=== PATIENT | male | born 1955 | race American Indian/Alaskan Native ===

== ENCOUNTER 2020-05-06 15:09 | Emergency (ER) | payer OTHER ==
[2020-05-06] MEDS ORDERED: Aspirin 81 MG Tab.Chew PO ONE (15:19)
--- NOTE | 2020-05-06 15:19 | EDM.PDOC ---
ED HPI GENERAL MEDICAL PROBLEM - General Stated Complaint: CHEST PAIN Time Seen by Provider: 05/06/20 15:17 Source of Information: Reports: Patient History Limitations: Reports: No Limitations - History of Present Illness INITIAL COMMENTS - FREE TEXT/NARRATIVE: This 64 yo male patient was sent to the ED from the [facility] due to a 3 day history of chest pain and shortness of breath. The patient reports he is having substernal chest pain over the past 3 days. The patient has attempted to take pepto and antacid medications with no symptom improvement. The patient reports he does have a history of acid reflux, but his symptoms have not lasted this long in the past. Duration: Day(s):, Constant Location: Reports: Chest Quality: Reports: Ache Severity: Moderate Improves with: Reports: None Worsens with: Reports: None Context: Reports: Other Associated Symptoms: Reports: No Other Symptoms Epigastric Pain Score (Numeric/FACES): 3 - Related Data Allergies Allergy/AdvReac Type Severity Reaction Status Date / Time Sulfa (Sulfonamide Allergy Unknown UNKNOWN Verified 05/06/20 15:21 Antibiotics) Home Meds: Home Meds Lisinopril/Hydrochlorothiazide [Zestoretic 10-12.5 MG] 1 tab PO DAILY 02/02/15 [History] Sertraline [Zoloft] 50 mg PO DAILY 12/18/15 [History] oxyCODONE HCl/Acetaminophen [oxyCODONE-Acetaminophen 5-325] 1 - 2 tab PO Q4H PRN 12/20/15 [History] Past Medical History - Past Health History Medical/Surgical History: Denies Medical/Surgical History Cardiovascular History: Reports: Hypertension Gastrointestinal History: Reports: GERD Musculoskeletal History: Reports: Other (See Below) Other Musculoskeletal History: "bulging discs" - Infectious Disease History Infectious Disease History: Reports: Chicken Pox - Past Surgical History GI Surgical History: Reports: Cholecystectomy Other GI Surgeries/Procedures: has surgical scar lower abd but this was part of the back surgery Musculoskeletal Surgical History: Reports: Other (See Below) Social & Family History - Family History Family Medical History: Noncontributory - Caffeine Use Caffeine Use: Reports: Coffee - Living Situation & Occupation Living situation: Reports: , with Spouse, with Family ED ROS GENERAL - Review of Systems Review Of Systems: Comprehensive ROS is negative, except as noted in HPI. ED EXAM, GENERAL - Physical Exam Exam: See Below Exam Limited By: No Limitations General Appearance: Alert, WD/WN, Mild Distress Eye Exam: Bilateral Eye: EOMI, Normal Inspection, PERRL Ears: Normal External Exam, Normal Canal, Hearing Grossly Normal, Normal TMs Nose: Normal Inspection, Normal Mucosa, No Blood Throat/Mouth: Normal Inspection, Normal Lips, Normal Teeth, Normal Gums, Normal Oropharynx, Normal Voice, No Airway Compromise Head: Atraumatic, Normocephalic Neck: Normal Inspection, Supple, Non-Tender, Full Range of Motion Respiratory/Chest: No Respiratory Distress, Lungs Clear, Normal Breath Sounds, No Accessory Muscle Use, Chest Non-Tender Cardiovascular: Normal Peripheral Pulses, Regular Rate, Rhythm, No Edema, No Gallop, No JVD, No Murmur, No Rub GI/Abdominal: Normal Bowel Sounds (Male) Exam: Deferred Rectal (Males) Exam: Deferred Back Exam: Normal Inspection, Full Range of Motion, NT Extremities: Normal Inspection, Normal Range of Motion, Non-Tender, Normal Capillary Refill, No Pedal Edema Neurological: Alert, Oriented, CN II-XII Intact, Normal Cognition, Normal Gait, Normal Reflexes, No Motor/Sensory Deficits Psychiatric: Normal Affect, Normal Mood Skin Exam: Warm, Dry, Intact, Normal Color, No Rash Lymphatic: No Adenopathy Course - Vital Signs Last Recorded V/S: Last Vital Signs Temp 36.4 C 05/06/20 15:19 Pulse 72 05/06/20 15:19 Resp 12 05/06/20 15:19 BP 122/74 05/06/20 15:19 Pulse Ox 97 05/06/20 15:19 - Orders/Labs/Meds Orders: Active Orders 24 hr Category Date Time Status EKG Documentation Completion [RC] STAT Care 05/06/20 15:11 Active CULTURE BLOOD [BC] Stat Lab 05/06/20 15:27 Received Labs: Laboratory Tests 05/06/20 05/06/20 05/06/20 Range/Units 15:27 15:27 15:27 WBC 7.1 (5.0-10.0) 10^3/uL RBC 5.21 (4.6-6.2) 10^6/uL Hgb 15.0 D (14.0-18.0) g/dL Hct 44.5 (40.0-54.0) % MCV 85.4 D (80-100) fL MCH 28.8 (27.0-34.0) pg MCHC 33.7 (33.0-35.0) g/dL Plt Count 167 D (150-450) 10^3/uL Neut % (Auto) 56.1 (42.2-75.2) % Lymph % (Auto) 29.6 (20.5-50.1) % [place] % (Auto) 9.0 H (2-8) % Eos % (Auto) 5.2 H (1.0-3.0) % Baso % (Auto) 0.1 (0.0-1.0) % D-Dimer, Quantitative < 100 (0-400) ng/mL Sodium 141 (136-145) mmol/L Potassium 3.6 (3.5-5.1) mmol/L Chloride 104 (98-107) mmol/L Carbon Dioxide 28 (21-32) mmol/L Anion Gap 12.6 (7-13) mEq/L BUN 16 (7-18) mg/dL Creatinine 1.11 (0.70-1.30) mg/dL Est Cr Clr Drug Dosing 82.47 mL/min Estimated GFR (MDRD) > 60 BUN/Creatinine Ratio 14.4 (No establ ref range) Glucose 100 H (74-99) mg/dL Lactic Acid (0.4-2.0) mmol/L Calcium 8.6 (8.5-10.1) mg/dL Total Bilirubin 0.5 (0.2-1.0) mg/dL AST 38 H (15-37) U/L ALT 45 (16-63) U/L Alkaline Phosphatase 75 (46-116) U/L Troponin I < 0.017 (0.000-0.056) ng/mL Total Protein 6.9 (6.4-8.2) g/dL Albumin 3.7 (3.4-5.0) g/dL Globulin 3.2 Albumin/Globulin Ratio 1.2 07/23/20 Range/Units 15:27 WBC (5.0-10.0) 10^3/uL RBC (4.6-6.2) 10^6/uL Hgb (14.0-18.0) g/dL Hct (40.0-54.0) % MCV (80-100) fL MCH (27.0-34.0) pg MCHC (33.0-35.0) g/dL Plt Count (150-450) 10^3/uL Neut % (Auto) (42.2-75.2) % Lymph % (Auto) (20.5-50.1) % [place] % (Auto) (2-8) % Eos % (Auto) (1.0-3.0) % Baso % (Auto) (0.0-1.0) % D-Dimer, Quantitative (0-400) ng/mL Sodium (136-145) mmol/L Potassium (3.5-5.1) mmol/L Chloride (98-107) mmol/L Carbon Dioxide (21-32) mmol/L Anion Gap (7-13) mEq/L BUN (7-18) mg/dL Creatinine (0.70-1.30) mg/dL Est Cr Clr Drug Dosing mL/min Estimated GFR (MDRD) BUN/Creatinine Ratio (No establ ref range) Glucose (74-99) mg/dL Lactic Acid 1.1 (0.4-2.0) mmol/L Calcium (8.5-10.1) mg/dL Total Bilirubin (0.2-1.0) mg/dL AST (15-37) U/L ALT (16-63) U/L Alkaline Phosphatase (46-116) U/L Troponin I (0.000-0.056) ng/mL Total Protein (6.4-8.2) g/dL Albumin (3.4-5.0) g/dL Globulin Albumin/Globulin Ratio Meds: Medications Discontinued Medications Generic Name Dose Route Start Last Admin Trade Name Freq PRN Reason Stop Dose Admin Al Hydroxide/Mg Hydroxide 30 ml 05/06/20 16:17 05/06/20 16:30 Gi Cocktail PO 05/06/20 16:18 30 ml ONETIME ONE Administration Aspirin 324 mg 05/06/20 15:19 05/06/20 15:35 Aspirin PO 05/06/20 15:20 324 mg ONETIME ONE Administration Departure - Departure Time of Disposition: 16:51 Disposition: Home, Self-Care 01 Condition: Fair Clinical Impression: GERD (gastroesophageal reflux disease) Qualifiers: Esophagitis presence: with esophagitis Qualified Code(s): K21.0 - Gastro- esophageal reflux disease with esophagitis Instructions: Gastroesophageal Reflux Disease, Adult, [id number] Forms: ED Department Discharge Care Plan Goals: The patient was advised of the examination, lab and EKG results during the visit. The patient was given an oral dose of Pepcid and a GI Cocktail while in the ED. The patient was discharged with a script for Omeprazole (20 mg) #30 to take 1 by mouth daily 30 minutes prior to meal. If the patient has any additional symptoms or concerns, the patient should follow-up with his primary care facility or return to the emergency department. Sepsis Event Note (ED) - Focused Exam Vital Signs: Vital Signs Temp Pulse Resp BP Pulse Ox 05/06/20 15:19 36.4 C 72 12 122/74 97 - My Orders Last 24 Hours: My Active Orders 05/06/20 15:11 EKG Documentation Completion [RC] STAT 05/06/20 15:27 CULTURE BLOOD [BC] Stat - Assessment/Plan Last 24 Hours: My Active Orders 05/06/20 15:11 EKG Documentation Completion [RC] STAT 05/06/20 15:27 CULTURE BLOOD [BC] Stat
[2020-05-06 15:20] VITALS: BP 122/74; PULSE 72
--- NOTE | 2020-05-06 15:48 | CR ---
PROCEDURE INFORMATION: Exam: XR Chest, 1 View Exam date and time: 05/06/2020 3:35 PM Age: 64 years old Clinical indication: Other: Chest pain TECHNIQUE: Imaging protocol: XR of the chest Views: 1 view. COMPARISON: CR Chest 1V Frontal 10/01/2015 11:35 AM FINDINGS: Lungs: Unremarkable. No consolidation. Pleural space: Unremarkable. No pleural effusion. No pneumothorax. Heart/Mediastinum: Unremarkable. No cardiomegaly. Bones/joints: Unremarkable. IMPRESSION: No acute findings.
[2020-05-06 15:57] LABS: ANION GAP 12.6 mEq/L (7-13); CHLORIDE,CL 104 mmol/L (98-107); SODIUM,NA 141 mmol/L (136-145)
[2020-05-06] MEDS ORDERED: GI Cocktail Oral Solution 30 ML PO ONE (16:17)
== END 2020-05-06 17:00 | disposition home or self-care (01) ==
LOC: DL.ED 15:09
DX: K21.0 Gastro-esophageal reflux disease with esophagitis (principal); I10 Essential (primary) hypertension; Z88.2 Allergy status to sulfonamides; Z79.899 Other long term (current) drug therapy
CPT/HCPCS: 36415; 71045; 80053; 83605; 84484; 85025; 85379; 87040; 93005; 99283; 99285; A9270

== ENCOUNTER 2020-08-28 13:19 | Emergency (ER) | payer OTHER ==
[2020-08-28 14:04] VITALS: BP 119/73; PULSE 96
[2020-08-28 14:27] LABS: ANION GAP 12.3 mEq/L (7-13); CHLORIDE,CL 98 mmol/L (98-107); SODIUM,NA 133 mmol/L (136-145)
--- NOTE | 2020-08-28 14:34 | CR ---
PROCEDURE INFORMATION: Exam: XR Chest, 1 View Exam date and time: 08/28/2020 2:25 PM Age: 65 years old Clinical indication: Chest pain; Type not specified TECHNIQUE: Imaging protocol: XR of the chest Views: 1 view. COMPARISON: CR Chest 1V Frontal 05/06/2020 3:35 PM FINDINGS: Lungs: Atelectatic and/or early infiltrative changes noted within the lung bases. Pleural space: Unremarkable. No pleural effusion. No pneumothorax. Heart/Mediastinum: Unremarkable. No cardiomegaly. Bones/joints: The thoracic spine demonstrates mild degenerative changes at multiple levels. Right shoulder replacement. IMPRESSION: Atelectatic and/or early infiltrative changes noted within the lung bases.
--- NOTE | 2020-08-28 14:43 | EDM.PDOC ---
ED HPI GENERAL MEDICAL PROBLEM - General Chief Complaint: Chest Pain Stated Complaint: COVID + Time Seen by Provider: 08/28/20 13:30 Source of Information: Reports: Patient History Limitations: Reports: No Limitations - History of Present Illness INITIAL COMMENTS - FREE TEXT/NARRATIVE: Patient is here for chest pain and shortness of breath. He was diagnosed with COVID on 08/20 and has been recovering well at home until 3 days ago. His chest began to hurt and he became more short of breath. No fevers or chills. His body aches are better. The pain does not radiate, but stays midline chest. It is sharp in nature and throbs. Onset: Gradual Improves with: Reports: Rest Worsens with: Reports: Other (coughing), Movement Context: Reports: Other (recent COVID infection) Associated Symptoms: Reports: Headaches. Denies: Fever/Chills Middle Chest Pain Score (Numeric/FACES): 8 - Related Data Allergies Allergy/AdvReac Type Severity Reaction Status Date / Time Sulfa (Sulfonamide Allergy Unknown UNKNOWN Verified 08/28/20 13:59 Antibiotics) Home Meds: Home Meds Lisinopril/Hydrochlorothiazide [Zestoretic 10-12.5 MG] 1 tab PO DAILY 02/02/15 [History] Sertraline [Zoloft] 50 mg PO DAILY 12/18/15 [History] oxyCODONE HCl/Acetaminophen [oxyCODONE-Acetaminophen 5-325] 1 - 2 tab PO Q4H PRN 12/20/15 [History] Past Medical History - Past Health History Medical/Surgical History: Denies Medical/Surgical History HEENT History: Reports: Cataract, Hard of Hearing Other HEENT History: moisture in ear Cardiovascular History: Reports: Hypertension Respiratory History: Reports: None Gastrointestinal History: Reports: GERD Genitourinary History: Reports: Other (See Below) Other Genitourinary History: stream Musculoskeletal History: Reports: Other (See Below) Other Musculoskeletal History: "bulging discs" Neurological History: Reports: Headaches, Chronic Psychiatric History: Reports: Depression Endocrine/Metabolic History: Reports: None Hematologic History: Reports: None Immunologic History: Reports: None Oncologic (Cancer) History: Reports: None Dermatologic History: Reports: Other (See Below) Other Dermatologic History: rash to the body since the 1970s - Infectious Disease History Infectious Disease History: Reports: Chicken Pox - Past Surgical History HEENT Surgical History: Reports: Cataract Surgery GI Surgical History: Reports: Cholecystectomy Other GI Surgeries/Procedures: has surgical scar lower abd but this was part of the back surgery Musculoskeletal Surgical History: Reports: Other (See Below) Other Musculoskeletal Surgeries/Procedures:: 2 back surgeries Social & Family History - Family History Family Medical History: No Pertinent Family History - Caffeine Use Caffeine Use: Reports: Coffee - Recreational Drug Use Recreational Drug Use: No - Living Situation & Occupation Living situation: Reports: , with Spouse, with Family ED ROS GENERAL - Review of Systems Review Of Systems: Comprehensive ROS is negative, except as noted in HPI. ED EXAM, GENERAL - Physical Exam Exam: See Below Exam Limited By: No Limitations General Appearance: Alert, WD/WN, No Apparent Distress Eye Exam: Bilateral Eye: Normal Inspection Ears: Normal External Exam Head: Atraumatic, Normocephalic Neck: Normal Inspection, Supple, Non-Tender, Full Range of Motion Respiratory/Chest: No Respiratory Distress, Lungs Clear, Normal Breath Sounds, No Accessory Muscle Use, Chest Non-Tender Cardiovascular: Normal Peripheral Pulses, Regular Rate, Rhythm, No Edema, No Murmur, No Rub GI/Abdominal: Soft, Non-Tender, No Distention (Male) Exam: Deferred Rectal (Males) Exam: Deferred Back Exam: Normal Inspection, Full Range of Motion, NT Extremities: Normal Inspection, Normal Range of Motion, Non-Tender, Normal Capillary Refill, No Pedal Edema Neurological: Alert, Oriented, CN II-XII Intact, Normal Cognition, Normal Gait, Normal Reflexes, No Motor/Sensory Deficits Psychiatric: Normal Affect Skin Exam: Warm, Dry, Intact, Normal Color, No Rash Lymphatic: No Adenopathy Course - Vital Signs Last Recorded V/S: Last Vital Signs Temp 96.8 F L 08/28/20 14:00 Pulse 96 08/28/20 14:00 Resp 22 H 08/28/20 14:00 BP 119/73 08/28/20 14:00 Pulse Ox 95 08/28/20 14:00 - Orders/Labs/Meds Orders: Active Orders 24 hr Category Date Time Status EKG 12 Lead [EKG Documentation Completion] [RC] URGENT Care 08/28/20 14:09 Active Labs: Laboratory Tests 08/28/20 08/28/20 Range/Units 13:46 13:46 WBC 3.1 L (5.0-10.0) 10^3/uL RBC 5.21 (4.6-6.2) 10^6/uL Hgb 15.1 (14.0-18.0) g/dL Hct 43.4 (40.0-54.0) % MCV 83.3 (80-100) fL MCH 29.0 (27.0-34.0) pg MCHC 34.8 (33.0-35.0) g/dL Plt Count 119 L (150-450) 10^3/uL Neut % (Auto) 59.7 (42.2-75.2) % Lymph % (Auto) 28.8 (20.5-50.1) % [place] % (Auto) 11.5 H (2-8) % Eos % (Auto) 0.0 L (1.0-3.0) % Baso % (Auto) 0.0 (0.0-1.0) % Sodium 133 L (136-145) mmol/L Potassium 3.3 L (3.5-5.1) mmol/L Chloride 98 (98-107) mmol/L Carbon Dioxide 26 (21-32) mmol/L Anion Gap 12.3 (7-13) mEq/L BUN 13 (7-18) mg/dL Creatinine 1.11 (0.70-1.30) mg/dL Est Cr Clr Drug Dosing 81.41 mL/min Estimated GFR (MDRD) > 60 BUN/Creatinine Ratio 11.7 (No establ ref range) Glucose 117 H (74-99) mg/dL Calcium 8.4 L (8.5-10.1) mg/dL Total Bilirubin 0.9 (0.2-1.0) mg/dL AST 64 H (15-37) U/L ALT 57 (16-63) U/L Alkaline Phosphatase 76 (46-116) U/L Troponin I < 0.017 (0.000-0.056) ng/mL Total Protein 7.2 (6.4-8.2) g/dL Albumin 3.3 L (3.4-5.0) g/dL Globulin 3.9 Albumin/Globulin Ratio 0.85 Departure - Departure Time of Disposition: 15:00 Disposition: Home, Self-Care 01 Clinical Impression: COVID-19 Instructions: COVID-19: How to Protect Yourself and Others - CDC Forms: ED Department Discharge Additional Instructions: Dexamethasone 6 mg daily for 10 days Continue to quarantine until symptoms the 16th or your symptoms clear, which ever comes later Follow up with primary care provider in 5-7 days or return sooner if your symptoms worsen. Sepsis Event Note (ED) - Evaluation Sepsis Screening Result: No Definite Risk - Focused Exam Vital Signs: Vital Signs Temp Pulse Resp BP Pulse Ox 08/28/20 14:00 96.8 F L 96 22 H 119/73 95 - My Orders Last 24 Hours: My Active Orders 08/28/20 14:09 EKG 12 Lead [EKG Documentation Completion] [RC] URGENT - Assessment/Plan Last 24 Hours: My Active Orders 08/28/20 14:09 EKG 12 Lead [EKG Documentation Completion] [RC] URGENT
== END 2020-08-28 15:07 | disposition home or self-care (01) ==
LOC: DL.ED 13:19
DX: U07.1 COVID-19 (principal); I10 Essential (primary) hypertension; F32.9 Major depressive disorder, single episode, unspecified; Z88.2 Allergy status to sulfonamides; Z79.899 Other long term (current) drug therapy
CPT/HCPCS: 36415; 71045; 80053; 84484; 85025; 93005; 99283; 99285-25

== ENCOUNTER 2020-09-01 07:45 | Inpatient (IN) | payer OTHER ==
--- NOTE | 2020-09-01 07:48 | EDM.PDOC ---
ED HPI GENERAL MEDICAL PROBLEM - General Stated Complaint: CALL IN Time Seen by Provider: 09/01/20 08:00 Source of Information: Reports: Patient History Limitations: Reports: No Limitations - History of Present Illness INITIAL COMMENTS - FREE TEXT/NARRATIVE: This 65 yo male patient was brought to the ED by [facility] due to increased shortness of breath. The patient reports he was tested and diagnosed with COVID on 08/20/20 at the [facility]. The patient reports he was doing well under quarantine until 5 days ago when he started to have increased shortness of breath. The patient reports he was seen in the ED on 08/28/20 and started on Dexamethasone (6 mg) daily for 10 days. Since he started the steroids, the patient has noticed no improvement in his breathing. The patient reports he has not been able to eat due to loss of appetite, has not been able to sleep due to the shortness of breath and had diarrhea this morning. The patient reports he currently feels like the right side of his lungs are "not working". The patient reports he has been taking the Dexamethasone as well as taking the Tessalon Pearles with no symptom improvement. EMS reports upon arrival at the scene the patient was "working hard to breath" and his oxygen saturation was 86% on room air. EMS placed a nasal canula at 3 lpm which increased his oxygen saturation to 94-95%. The patient has a past medical history of HTN, but no other cardiopulmonary concerns. Onset Date: 08/27/20 Duration: Constant, Getting Worse Location: Reports: Chest Quality: Reports: Pressure Severity: Severe Improves with: Reports: None Worsens with: Reports: None Context: Reports: Other Associated Symptoms: Reports: Cough, Shortness of Breath, Weakness, Other (diarrhea) Generalized Pain Score (Numeric/FACES): 9 - Related Data Allergies Allergy/AdvReac Type Severity Reaction Status Date / Time Sulfa (Sulfonamide Allergy Unknown UNKNOWN Verified 09/01/20 08:03 Antibiotics) Home Meds: Home Meds Lisinopril/Hydrochlorothiazide [Zestoretic 10-12.5 MG] 1 tab PO DAILY 02/02/15 [History] Sertraline [Zoloft] 50 mg PO DAILY 12/18/15 [History] oxyCODONE HCl/Acetaminophen [oxyCODONE-Acetaminophen 5-325] 1 - 2 tab PO Q4H PRN 12/20/15 [History] Past Medical History - Past Health History Medical/Surgical History: Denies Medical/Surgical History HEENT History: Reports: Cataract, Hard of Hearing Other HEENT History: moisture in ear Cardiovascular History: Reports: Hypertension Respiratory History: Reports: None Gastrointestinal History: Reports: GERD Genitourinary History: Reports: Other (See Below) Other Genitourinary History: stream Musculoskeletal History: Reports: Other (See Below) Other Musculoskeletal History: "bulging discs" Neurological History: Reports: Headaches, Chronic Psychiatric History: Reports: Depression Endocrine/Metabolic History: Reports: None Hematologic History: Reports: None Immunologic History: Reports: None Oncologic (Cancer) History: Reports: None Dermatologic History: Reports: Other (See Below) Other Dermatologic History: rash to the body since the 1970s - Infectious Disease History Infectious Disease History: Reports: Chicken Pox - Past Surgical History HEENT Surgical History: Reports: Cataract Surgery GI Surgical History: Reports: Cholecystectomy Other GI Surgeries/Procedures: has surgical scar lower abd but this was part of the back surgery Musculoskeletal Surgical History: Reports: Other (See Below) Other Musculoskeletal Surgeries/Procedures:: 2 back surgeries Social & Family History - Family History Family Medical History: No Pertinent Family History - Caffeine Use Caffeine Use: Reports: Coffee - Living Situation & Occupation Living situation: Reports: , with Spouse, with Family ED ROS GENERAL - Review of Systems Review Of Systems: Comprehensive ROS is negative, except as noted in HPI. ED EXAM, GENERAL - Physical Exam Exam: See Below Exam Limited By: No Limitations General Appearance: Alert, WD/WN, Moderate Distress Eye Exam: Bilateral Eye: EOMI, Normal Inspection, PERRL Ears: Normal External Exam, Normal Canal, Hearing Grossly Normal, Normal TMs Nose: Normal Inspection, Normal Mucosa, No Blood Throat/Mouth: Normal Inspection, Normal Lips, Normal Teeth, Normal Gums, Normal Oropharynx, Normal Voice, No Airway Compromise Head: Atraumatic, Normocephalic Neck: Normal Inspection, Supple, Non-Tender, Full Range of Motion Respiratory/Chest: Decreased Breath Sounds, Rhonchi (right sided), Other (Respiratory rate 26 bpm with oxygen via NC at 3 lpm) Cardiovascular: Normal Peripheral Pulses, Regular Rate, Rhythm, No Edema, No Gallop, No JVD, No Murmur, No Rub GI/Abdominal: Normal Bowel Sounds, Soft, Non-Tender, No Organomegaly, No Distention, No Abnormal Bruit, No Mass (Male) Exam: Deferred Rectal (Males) Exam: Deferred Back Exam: Normal Inspection, Full Range of Motion, NT Extremities: Normal Inspection, Normal Range of Motion, Non-Tender, Normal Capillary Refill, No Pedal Edema Neurological: Alert, Oriented, CN II-XII Intact, Normal Cognition, Normal Gait, Normal Reflexes, No Motor/Sensory Deficits Psychiatric: Anxious, Tearful Skin Exam: Warm, Dry, Intact, Normal Color, No Rash Lymphatic: No Adenopathy Course - Vital Signs Last Recorded V/S: Last Vital Signs Temp 37.0 C 09/01/20 07:59 Pulse 92 09/01/20 07:59 Resp 24 H 09/01/20 07:59 BP 131/78 09/01/20 07:59 Pulse Ox 95 09/01/20 07:59 - Orders/Labs/Meds Orders: Active Orders 24 hr Category Date Time Status CULTURE BLOOD [BC] Stat Lab 09/01/20 08:02 Received Azithromycin [Zithromax] 500 mg Med 09/01/20 10:27 Ordered Sodium Chloride 0.9% [Normal Saline (AdvBag)] 250 ml IV ONETIME cefTRIAXone [Rocephin] 1 gm Med 09/01/20 10:27 Ordered Sodium Chloride 0.9% [Normal Saline] 50 ml IV ONETIME Medication Orders Azithromycin 500 mg/ Sodium (Chloride) 250 mls @ 250 mls/hr IV ONETIME ONE Stop: 09/01/20 11:26 Ceftriaxone Sodium 1 gm/ (Sodium Chloride) 50 mls @ 100 mls/hr IV ONETIME ONE Stop: 09/01/20 10:56 Labs: Laboratory Tests 09/01/20 09/01/20 09/01/20 Range/Units 08:02 08:02 08:02 WBC 10.2 H (5.0-10.0) 10^3/uL RBC 5.18 (4.6-6.2) 10^6/uL Hgb 14.8 (14.0-18.0) g/dL Hct 43.6 (40.0-54.0) % MCV 84.2 (80-100) fL MCH 28.6 (27.0-34.0) pg MCHC 33.9 (33.0-35.0) g/dL Plt Count 186 (150-450) 10^3/uL Neut % (Auto) 87.2 H (42.2-75.2) % Lymph % (Auto) 6.5 L (20.5-50.1) % [place] % (Auto) 6.2 (2-8) % Eos % (Auto) 0.0 L (1.0-3.0) % Baso % (Auto) 0.1 (0.0-1.0) % PT 11.3 (9.0-12.0) SEC INR 1.2 (0.9-1.2) D-Dimer, Quantitative 204 (0-400) ng/mL Sodium 139 (136-145) mmol/L Potassium 3.8 (3.5-5.1) mmol/L Chloride 102 (98-107) mmol/L Carbon Dioxide 28 (21-32) mmol/L Anion Gap 12.8 (7-13) mEq/L BUN 16 (7-18) mg/dL Creatinine 0.98 (0.70-1.30) mg/dL Est Cr Clr Drug Dosing 92.21 mL/min Estimated GFR (MDRD) > 60 BUN/Creatinine Ratio 16.3 (No establ ref range) Glucose 114 H (74-99) mg/dL Lactic Acid (0.4-2.0) mmol/L Calcium 8.3 L (8.5-10.1) mg/dL Total Bilirubin 1.1 H (0.2-1.0) mg/dL AST 33 (15-37) U/L ALT 45 (16-63) U/L Alkaline Phosphatase 68 (46-116) U/L C-Reactive Protein 5.3 H (0.0-0.9) mg/dL Total Protein 6.6 (6.4-8.2) g/dL Albumin 2.8 L (3.4-5.0) g/dL Globulin 3.8 Albumin/Globulin Ratio 0.74 18/20 Range/Units 08:02 WBC (5.0-10.0) 10^3/uL RBC (4.6-6.2) 10^6/uL Hgb (14.0-18.0) g/dL Hct (40.0-54.0) % MCV (80-100) fL MCH (27.0-34.0) pg MCHC (33.0-35.0) g/dL Plt Count (150-450) 10^3/uL Neut % (Auto) (42.2-75.2) % Lymph % (Auto) (20.5-50.1) % [place] % (Auto) (2-8) % Eos % (Auto) (1.0-3.0) % Baso % (Auto) (0.0-1.0) % PT (9.0-12.0) SEC INR (0.9-1.2) D-Dimer, Quantitative (0-400) ng/mL Sodium (136-145) mmol/L Potassium (3.5-5.1) mmol/L Chloride (98-107) mmol/L Carbon Dioxide (21-32) mmol/L Anion Gap (7-13) mEq/L BUN (7-18) mg/dL Creatinine (0.70-1.30) mg/dL Est Cr Clr Drug Dosing mL/min Estimated GFR (MDRD) BUN/Creatinine Ratio (No establ ref range) Glucose (74-99) mg/dL Lactic Acid 1.8 (0.4-2.0) mmol/L Calcium (8.5-10.1) mg/dL Total Bilirubin (0.2-1.0) mg/dL AST (15-37) U/L ALT (16-63) U/L Alkaline Phosphatase (46-116) U/L C-Reactive Protein (0.0-0.9) mg/dL Total Protein (6.4-8.2) g/dL Albumin (3.4-5.0) g/dL Globulin Albumin/Globulin Ratio Meds: Medications Generic Name Dose Route Start Last Admin Trade Name Freq PRN Reason Stop Dose Admin Azithromycin 500 mg/ Sodium 250 mls @ 250 mls/hr 09/01/20 10:27 Chloride IV 09/01/20 11:26 ONETIME ONE Ceftriaxone Sodium 1 gm/ 50 mls @ 100 mls/hr 09/01/20 10:27 Sodium Chloride IV 09/01/20 10:56 ONETIME ONE Discontinued Medications Generic Name Dose Route Start Last Admin Trade Name Freq PRN Reason Stop Dose Admin Dexamethasone 6 mg 09/01/20 08:33 09/01/20 08:51 Decadron IVPUSH 09/01/20 08:34 6 mg ONETIME ONE Administration Departure - Departure Time of Disposition: 10:33 Disposition: Admitted As Inpatient 68 Condition: Fair Clinical Impression: COVID-19 Pneumonia Qualifiers: Pneumonia type: due to unspecified organism Laterality: bilateral Lung location: lower lobe of lung Qualified Code(s): J18.9 - Pneumonia, unspecified organism - Discharge Information *PRESCRIPTION DRUG MONITORING PROGRAM REVIEWED*: Not Applicable *COPY OF PRESCRIPTION DRUG MONITORING REPORT IN PATIENT DANIELLE: Not Applicable Care Plan Goals: Discussed the patient's history, examination, lab and CT results with Dr. Black. Dr. Black accepted the patient for continued evaluation and further management as an inpatient at [facility]. Sepsis Event Note (ED) - Focused Exam Vital Signs: Vital Signs Temp Pulse Resp BP Pulse Ox 09/01/20 07:59 37.0 C 92 24 H 131/78 95 - My Orders Last 24 Hours: My Active Orders 09/01/20 08:02 CULTURE BLOOD [BC] Stat 09/01/20 10:27 Azithromycin [Zithromax] 500 mg Sodium Chloride 0.9% [Normal Saline (AdvBag)] 250 ml IV ONETIME cefTRIAXone [Rocephin] 1 gm Sodium Chloride 0.9% [Normal Saline] 50 ml IV ONETIME - Assessment/Plan Last 24 Hours: My Active Orders 09/01/20 08:02 CULTURE BLOOD [BC] Stat 09/01/20 10:27 Azithromycin [Zithromax] 500 mg Sodium Chloride 0.9% [Normal Saline (AdvBag)] 250 ml IV ONETIME cefTRIAXone [Rocephin] 1 gm Sodium Chloride 0.9% [Normal Saline] 50 ml IV ONETIME
[2020-09-01 08:32] LABS: ANION GAP 12.8 mEq/L (7-13); CHLORIDE,CL 102 mmol/L (98-107); SODIUM,NA 139 mmol/L (136-145)
[2020-09-01] MEDS ORDERED: Dexamethasone 4 MG/ML SDV IVPUSH ONE (08:33)
--- NOTE | 2020-09-01 10:21 | CT ---
PROCEDURE INFORMATION: Exam: CT Chest Without Contrast Exam date and time: 09/01/2020 9:05 AM Age: 65 years old Clinical indication: Shortness of breath; Additional info: Short of breath TECHNIQUE: Imaging protocol: Computed tomography of the chest without contrast. Radiation optimization: All CT scans at this facility use at least one of these dose optimization techniques: automated exposure control; mA and/or kV adjustment per patient size (includes targeted exams where dose is matched to clinical indication); or iterative reconstruction. COMPARISON: 1. CR Chest 1V Frontal 08/28/2020 2:25 PM 2. CR - Chest 1V Frontal 05/06/2020 3:35:13 PM FINDINGS: Lungs: There are relatively large areas of predominantly peripheral ground-glass opacity with associated multifocal minimal interlobular septal thickening. There are a few areas associated more dense consolidation peripherally. Findings have a lower lung predominance. There is also nodular atelectasis or scar in the right lower lobe, and minimal discoid atelectasis or scar at the left lung base. Pleural space: Unremarkable. No pneumothorax. No pleural effusion. Heart: Unremarkable. No cardiomegaly. No pericardial effusion. Aorta: There is atherosclerotic calcification in the thoracic aorta. Descending thoracic aorta is slightly tortuous. Lymph nodes: Unremarkable. No enlarged lymph nodes. Gallbladder and bile ducts: Gallbladder has been surgically removed. Bones/joints: No acute osseous abnormality. Multilevel degenerative disc disease in the thoracic spine. No concerning osseous lesion. Right shoulder prosthesis partially included. Soft tissues: Unremarkable. Other findings: Comparison CT chest from 01/07/2016 is unavailable on PACs. IMPRESSION: 1. Predominantly peripheral geographic ground-glass opacities, with minimal interlobular septal thickening in multiple locations, as well as a few associated areas of more dense consolidation. Lower lung predominance. Commonly reported imaging features of COVID-19 pneumonia are present. Other processes such as influenza pneumonia and organizing pneumonia, as can be seen with drug toxicity and connective tissue disease, can cause a similar imaging pattern. (Reference: Dragan) REFERENCES: Dragan Velasquez et al., [employer] of [place] Expert Consensus Statement on Reporting Chest CT Findings Related to COVID-19. Endorsed by the Society of [employer]iology, the [place] [employer], and [employer]NA. Published January 07, 2020.
[2020-09-01] MEDS ORDERED: Azithromycin 500 MG in Sodium Chloride 0.9% 250 ML IV ONE (10:27)
[2020-09-01] MEDS ORDERED: cefTRIAXone 1 GM in Sodium Chloride 0.9% 50 ML IV ONE (10:27)
[2020-09-01] MEDS ORDERED: Ondansetron 4 MG/2 ML SDV IVPUSH PRN (11:44)
--- NOTE | 2020-09-01 11:57 | PCM.HP ---
H&P History of Present Illness - General Date of Service: 09/01/20 Admit Problem/Dx: Admission Diagnosis/Problem Admission Diagnosis/Problem COVID-19 pneumonia Source of Information: Patient History Limitations: Reports: No Limitations - History of Present Illness Initial Comments - Free Text/Narative: Stewart is a 35-year-old male with past medical history significant for hyp ertension, COVID-19 infection diagnosed on 08/20/2020. Patient was brought to the ED via EMS for increasing shortness of breath. Per patient he was diagnosed of COVID-19 on the above date and has been recuperating at home. He continued to have increasing shortness of breath, cough, weakness and decreased appetite. He was recently seen in the ED on 08/28/2020 where he was started on dexamethasone 6 mg daily to complete 10 days course. He has taken 3 doses so far. He says he has not seen any improvement since he started taking the Decadron. He gets short of breath easily with minimal activity. He has loss of appetite with poor oral intake. He is growing increasingly weak. He reports f ever on and off, headache. He had one episode of diarrhea this morning. Per EMS patient was saturating at 86% on room air. He was placed on 2 L via nasal cannula with saturation improved to 94 to 95%. He denies leg swelling. No chest pain. In the ED he was tachypneic at 24. CT chest showed peripheral groundglass opacities. Patient was started on IV ceftriaxone and azithromycin. Admission requested for further management. Onset of Symptoms: Reports: Gradual Duration of Symptoms: Reports: Day(s): Location: Reports: Generalized Quality: Reports: Ache Improves with: Reports: None Worsens with: Reports: None Context: Reports: Activity/Exercise Associated Symptoms: Reports: Cough, Fever/Chills, Headaches, Nausea/Vomiting, Shortness of Breath, Weakness Generalized Pain Score (Numeric/FACES): 9 - Related Data Allergies/Adverse Reactions: Allergies Allergy/AdvReac Type Severity Reaction Status Date / Time Sulfa (Sulfonamide Allergy Unknown UNKNOWN Verified 09/01/20 08:03 Antibiotics) Home Medications: Home Meds Lisinopril/Hydrochlorothiazide [Zestoretic 10-12.5 MG] 1 tab PO DAILY 02/02/15 [History] Sertraline [Zoloft] 50 mg PO BEDTIME 12/18/15 [History] oxyCODONE HCl/Acetaminophen [oxyCODONE-Acetaminophen 5-325] 1 - 2 tab PO Q4H PRN 12/20/15 [History] Benzonatate 200 mg PO TID 09/01/20 [History] dexAMETHasone [Dexamethasone] 6 mg PO DAILY 09/01/20 [History] Past Medical History - Past Health History Medical/Surgical History: Denies Medical/Surgical History HEENT History: Reports: Cataract, Hard of Hearing Other HEENT History: moisture in ear Cardiovascular History: Reports: Hypertension Respiratory History: Reports: None Gastrointestinal History: Reports: GERD Genitourinary History: Reports: None Other Genitourinary History: stream Musculoskeletal History: Reports: Other (See Below) Other Musculoskeletal History: "bulging discs" Neurological History: Reports: Headaches, Chronic Psychiatric History: Reports: Depression Endocrine/Metabolic History: Reports: Obesity/BMI 30+ Hematologic History: Reports: None Immunologic History: Reports: None Oncologic (Cancer) History: Reports: None Dermatologic History: Reports: Other (See Below) Other Dermatologic History: rash to the body since the 1970s - Infectious Disease History Infectious Disease History: Reports: Chicken Pox, Shingles, Other (See Below) Other Infectious Disease History: COVID + on 08/20/2020 - Past Surgical History Head Surgeries/Procedures: Reports: None HEENT Surgical History: Reports: Cataract Surgery Cardiovascular Surgical History: Reports: None GI Surgical History: Reports: Cholecystectomy, Colonoscopy Other GI Surgeries/Procedures: has surgical scar lower abd but this was part of the back surgery Endocrine Surgical History: Reports: None Neurological Surgical History: Reports: None Musculoskeletal Surgical History: Reports: Shoulder Replacement, Other (See Below) Other Musculoskeletal Surgeries/Procedures:: 2 back surgeries, 2 knee surgeries Dermatological Surgical History: Reports: None Social & Family History - Family History Family Medical History: No Pertinent Family History - Tobacco Use Tobacco Use Status *Q: Never Tobacco User - Caffeine Use Caffeine Use: Reports: Coffee - Recreational Drug Use Recreational Drug Use: No - Living Situation & Occupation Living situation: Reports: , with Spouse, with Family H&P Review of Systems - Review of Systems: Review Of Systems: See Below General: Reports: Weakness HEENT: Reports: No Symptoms Pulmonary: Reports: Shortness of Breath, Cough Cardiovascular: Reports: No Symptoms Gastrointestinal: Reports: No Symptoms Genitourinary: Reports: No Symptoms Musculoskeletal: Reports: Other (Generalized malaise, arthralgia, myalgia) Skin: Reports: No Symptoms Psychiatric: Reports: No Symptoms Neurological: Reports: No Symptoms Hematologic/Lymphatic: Reports: No Symptoms Immunologic: Reports: No Symptoms Exam - Exam Exam: See Below (In moderate respiratory distress) - Vital Signs Vital Signs: Last Vital Signs Temp 98.9 F 09/01/20 11:11 Pulse 67 09/01/20 11:11 Resp 24 H 09/01/20 11:11 BP 125/75 09/01/20 11:11 Pulse Ox 96 09/01/20 11:11 Weight: 261 lb 9.6 oz - Exam Quality Assessment: Supplemental Oxygen, DVT Prophylaxis General: Alert, Oriented, 4 HEENT: PERRLA, Hearing Intact, Mucosa Moist & [place], Nares Patent, Normal Nasal Septum, Posterior Pharynx Clear, Conjunctiva Clear, EOMI, EACs Clear, TMs Clear Neck: Supple, Trachea Midline, 2 Lungs: Clear to Auscultation, Normal Respiratory Effort Cardiovascular: Regular Rate, Regular Rhythm GI/Abdominal Exam: Normal Bowel Sounds, Soft, Non-Tender, No Organomegaly, No Distention, No Abnormal Bruit, No Mass, Pelvis Stable (Male) Exam: No Hernia, Normal Inspection, Normal Prostate, Circumcised Rectal (Males) Exam: Normal Exam, Normal Rectal Tone, Prostate Normal Back Exam: Normal Inspection, Full Range of Motion, NT Extremities: Normal Inspection, Normal Range of Motion, Non-Tender, No Pedal Edema, Normal Capillary Refill Skin: Warm, Dry, Intact Neurological: Cranial Nerves Intact, Reflexes Equal Bilateral Neuro Extensive - Mental Status: Alert, Oriented x3, Normal Mood/Affect, Normal Cognition Neuro Extensive - Motor, Sensory, Reflexes: CN II-XII Intact, Normal Gait, Normal Reflexes Psychiatric: Alert, Normal Affect, Normal Mood - Patient Data Lab Results Last 24 hrs: Laboratory Results - last 24 hr 09/01/20 09/01/20 09/01/20 Range/Units 08:02 08:02 08:02 WBC 10.2 H (5.0-10.0) 10^3/uL RBC 5.18 (4.6-6.2) 10^6/uL Hgb 14.8 (14.0-18.0) g/dL Hct 43.6 (40.0-54.0) % MCV 84.2 (80-100) fL MCH 28.6 (27.0-34.0) pg MCHC 33.9 (33.0-35.0) g/dL Plt Count 186 (150-450) 10^3/uL Neut % (Auto) 87.2 H (42.2-75.2) % Lymph % (Auto) 6.5 L (20.5-50.1) % [place] % (Auto) 6.2 (2-8) % Eos % (Auto) 0.0 L (1.0-3.0) % Baso % (Auto) 0.1 (0.0-1.0) % PT 11.3 (9.0-12.0) SEC INR 1.2 (0.9-1.2) D-Dimer, Quantitative 204 (0-400) ng/mL Sodium 139 (136-145) mmol/L Potassium 3.8 (3.5-5.1) mmol/L Chloride 102 (98-107) mmol/L Carbon Dioxide 28 (21-32) mmol/L Anion Gap 12.8 (7-13) mEq/L BUN 16 (7-18) mg/dL Creatinine 0.98 (0.70-1.30) mg/dL Est Cr Clr Drug Dosing 92.21 mL/min Estimated GFR (MDRD) > 60 BUN/Creatinine Ratio 16.3 (No establ ref range) Glucose 114 H (74-99) mg/dL Lactic Acid (0.4-2.0) mmol/L Calcium 8.3 L (8.5-10.1) mg/dL Total Bilirubin 1.1 H (0.2-1.0) mg/dL AST 33 (15-37) U/L ALT 45 (16-63) U/L Alkaline Phosphatase 68 (46-116) U/L C-Reactive Protein 5.3 H (0.0-0.9) mg/dL Total Protein 6.6 (6.4-8.2) g/dL Albumin 2.8 L (3.4-5.0) g/dL Globulin 3.8 Albumin/Globulin Ratio 0.74 11/18/20 Range/Units 08:02 WBC (5.0-10.0) 10^3/uL RBC (4.6-6.2) 10^6/uL Hgb (14.0-18.0) g/dL Hct (40.0-54.0) % MCV (80-100) fL MCH (27.0-34.0) pg MCHC (33.0-35.0) g/dL Plt Count (150-450) 10^3/uL Neut % (Auto) (42.2-75.2) % Lymph % (Auto) (20.5-50.1) % [place] % (Auto) (2-8) % Eos % (Auto) (1.0-3.0) % Baso % (Auto) (0.0-1.0) % PT (9.0-12.0) SEC INR (0.9-1.2) D-Dimer, Quantitative (0-400) ng/mL Sodium (136-145) mmol/L Potassium (3.5-5.1) mmol/L Chloride (98-107) mmol/L Carbon Dioxide (21-32) mmol/L Anion Gap (7-13) mEq/L BUN (7-18) mg/dL Creatinine (0.70-1.30) mg/dL Est Cr Clr Drug Dosing mL/min Estimated GFR (MDRD) BUN/Creatinine Ratio (No establ ref range) Glucose (74-99) mg/dL Lactic Acid 1.8 (0.4-2.0) mmol/L Calcium (8.5-10.1) mg/dL Total Bilirubin (0.2-1.0) mg/dL AST (15-37) U/L ALT (16-63) U/L Alkaline Phosphatase (46-116) U/L C-Reactive Protein (0.0-0.9) mg/dL Total Protein (6.4-8.2) g/dL Albumin (3.4-5.0) g/dL Globulin Albumin/Globulin Ratio Result Diagrams: 09/01/20 08:02 09/01/20 08:02 - Problem List (1) Acute respiratory failure with hypoxia SNOMED Code(s): 78698975, 853255084 ICD Code: J96.01 - ACUTE RESPIRATORY FAILURE WITH HYPOXIA Status: Acute Current Visit: Yes (2) Hypertension SNOMED Code(s): 37009656 ICD Code: I10 - ESSENTIAL (PRIMARY) HYPERTENSION Status: Acute Current Visit: Yes (3) Depression SNOMED Code(s): 70562566 ICD Code: F32.9 - MAJOR DEPRESSIVE DISORDER, SINGLE EPISODE, UNSPECIFIED Status: Acute Current Visit: Yes Problem List Initiated/Reviewed/Updated: Yes Orders Last 24hrs: Active Orders 24 hr Category Date Time Status Admission Diagnosis [ADT] Urgent ADT 09/01/20 10:28 Ordered Admission Status [Patient Status] [ADT] Routine ADT 09/01/20 10:28 Active Ambulate [RC] ASDIRECTED Care 09/01/20 11:44 Ordered Intake and Output [RC] QSHIFT Care 09/01/20 11:44 Ordered Notify Provider Vital Signs [RC] ASDIRECTED Care 09/01/20 11:45 Ordered Oxygen Therapy [RC] PRN Care 09/01/20 11:44 Ordered Pulse Oximetry [RC] PRN Care 09/01/20 11:44 Ordered VTE/DVT Education [RC] PER UNIT ROUTINE Care 09/01/20 11:44 Ordered Vital Signs [RC] Q4H Care 09/01/20 11:44 Ordered PT Evaluation and Treatment [CONS] Routine Cons 09/01/20 11:49 Ordered Regular Diet [DIET] Diet 09/01/20 Lunch Ordered C-REACTIVE PROTEIN [REF] DAILY Lab 09/03/20 07:00 Ordered C-REACTIVE PROTEIN [REF] DAILY Lab 09/04/20 07:00 Ordered C-REACTIVE PROTEIN [REF] DAILY Lab 09/05/20 07:00 Ordered C-REACTIVE PROTEIN [REF] DAILY Lab 09/06/20 07:00 Ordered C-REACTIVE PROTEIN [REF] DAILY Lab 09/07/20 07:00 Ordered CBC W/O DIFF,HEMOGRAM [HEME] DAILY Lab 09/02/20 07:00 Ordered CBC W/O DIFF,HEMOGRAM [HEME] DAILY Lab 09/03/20 07:00 Ordered CBC W/O DIFF,HEMOGRAM [HEME] DAILY Lab 09/04/20 07:00 Ordered CBC W/O DIFF,HEMOGRAM [HEME] DAILY Lab 09/05/20 07:00 Ordered CBC W/O DIFF,HEMOGRAM [HEME] DAILY Lab 09/06/20 07:00 Ordered COMPREHENSIVE METABOLIC PN,CMP [CHEM] DAILY Lab 09/02/20 07:00 Ordered COMPREHENSIVE METABOLIC PN,CMP [CHEM] DAILY Lab 09/03/20 07:00 Ordered COMPREHENSIVE METABOLIC PN,CMP [CHEM] DAILY Lab 09/04/20 07:00 Ordered COMPREHENSIVE METABOLIC PN,CMP [CHEM] DAILY Lab 09/05/20 07:00 Ordered COMPREHENSIVE METABOLIC PN,CMP [CHEM] DAILY Lab 09/06/20 07:00 Ordered CULTURE BLOOD [BC] Stat Lab 09/01/20 08:02 Received D-DIMER QUANTITATIVE [COAG] DAILY Lab 09/02/20 07:00 Ordered D-DIMER QUANTITATIVE [COAG] DAILY Lab 09/03/20 07:00 Ordered D-DIMER QUANTITATIVE [COAG] DAILY Lab 09/04/20 07:00 Ordered D-DIMER QUANTITATIVE [COAG] DAILY Lab 09/05/20 07:00 Ordered D-DIMER QUANTITATIVE [COAG] DAILY Lab 09/06/20 07:00 Ordered FERRITIN [CHEM] DAILY Lab 09/02/20 07:00 Ordered FERRITIN [CHEM] DAILY Lab 09/03/20 07:00 Ordered FERRITIN [CHEM] DAILY Lab 09/04/20 07:00 Ordered FERRITIN [CHEM] DAILY Lab 09/05/20 07:00 Ordered FERRITIN [CHEM] DAILY Lab 09/06/20 07:00 Ordered INR,PT,PROTHROMBIN TIME [COAG] DAILY Lab 09/02/20 07:00 Ordered INR,PT,PROTHROMBIN TIME [COAG] DAILY Lab 09/03/20 07:00 Ordered INR,PT,PROTHROMBIN TIME [COAG] DAILY Lab 09/04/20 07:00 Ordered INR,PT,PROTHROMBIN TIME [COAG] DAILY Lab 09/05/20 07:00 Ordered INR,PT,PROTHROMBIN TIME [COAG] DAILY Lab 09/06/20 07:00 Ordered LACTATE DEHYDROGENASE,LDH [CHEM] DAILY Lab 09/02/20 07:00 Ordered LACTATE DEHYDROGENASE,LDH [CHEM] DAILY Lab 09/03/20 07:00 Ordered LACTATE DEHYDROGENASE,LDH [CHEM] DAILY Lab 09/04/20 07:00 Ordered LACTATE DEHYDROGENASE,LDH [CHEM] DAILY Lab 09/05/20 07:00 Ordered LACTATE DEHYDROGENASE,LDH [CHEM] DAILY Lab 09/06/20 07:00 Ordered MAGNESIUM [CHEM] DAILY Lab 09/02/20 07:00 Ordered MAGNESIUM [CHEM] DAILY Lab 09/03/20 07:00 Ordered MAGNESIUM [CHEM] DAILY Lab 09/04/20 07:00 Ordered MAGNESIUM [CHEM] DAILY Lab 09/05/20 07:00 Ordered MAGNESIUM [CHEM] DAILY Lab 09/06/20 07:00 Ordered PHOSPHORUS [CHEM] DAILY Lab 09/02/20 07:00 Ordered PHOSPHORUS [CHEM] DAILY Lab 09/03/20 07:00 Ordered PHOSPHORUS [CHEM] DAILY Lab 09/04/20 07:00 Ordered PHOSPHORUS [CHEM] DAILY Lab 09/05/20 07:00 Ordered PHOSPHORUS [CHEM] DAILY Lab 09/06/20 07:00 Ordered TROPONIN I [CHEM] DAILY Lab 09/02/20 07:00 Ordered TROPONIN I [CHEM] DAILY Lab 09/03/20 07:00 Ordered TROPONIN I [CHEM] DAILY Lab 09/04/20 07:00 Ordered TROPONIN I [CHEM] DAILY Lab 09/05/20 07:00 Ordered TROPONIN I [CHEM] DAILY Lab 09/06/20 07:00 Ordered Acetaminophen [TylenoL] Med 09/01/20 11:44 Ordered 650 mg PO Q4H PRN Enoxaparin [Lovenox] Med 09/02/20 09:00 Ordered 40 mg SUBCUT DAILY Ondansetron [Zofran] Med 09/01/20 11:44 Ordered 4 mg IVPUSH Q6H PRN Resuscitation Status Routine Resus Stat 09/01/20 11:44 Ordered Medication Orders Acetaminophen (Tylenol) 650 mg PO Q4H PRN PRN Reason: Pain (Mild 1-3)/fever Enoxaparin Sodium (Lovenox) 40 mg SUBCUT DAILY DRE Ondansetron HCl (Zofran) 4 mg IVPUSH Q6H PRN PRN Reason: Nausea/Vomiting Assessment/Plan Comment:: #COVID-19 pneumonia #Acute respiratory failure with hypoxia due to above Patient diagnosed of COVID-19 on 08/20/2020 He has been recuperating at home but symptom gotten worse He was hypoxic requiring supplemental oxygen CT chest shows peripheral groundglass opacity Admit to medical floor Continue supplemental oxygen and wean off as able Send for procalcitonin Was started on ceftriaxone and azithromycin in the ED. Continue to follow Patient would not benefit from remdesivir and convalescent plasma given time of onset Continue IV dexamethasone Daily COVID-19 labs #Hypertension BP within acceptable limits Continue home medication Monitor BP closely #Depression Continue Zoloft #Obesity Advised to lose weight #Physical debility Physical therapy #Cardiac diet #Full code
[2020-09-01] MEDS: Benzonatate 100 MG Cap PO SCH ×2 (16:13→22:42)
[2020-09-01] MEDS: Sertraline 50 MG Tab PO SCH (22:41)
[2020-09-01] MEDS: diphenhydrAMINE 25 MG Tab PO PRN (22:42)
[2020-09-01] MEDS: Acetaminophen 325 MG Tab PO PRN (22:43)
[2020-09-02 07:08] LABS: ANION GAP 14.2 mEq/L (7-13); CHLORIDE,CL 102 mmol/L (98-107); SODIUM,NA 138 mmol/L (136-145)
[2020-09-02] MEDS: Dexamethasone 4 MG Tab PO SCH (08:23)
[2020-09-02] MEDS: Benzonatate 100 MG Cap PO SCH ×3 (08:25→21:44)
[2020-09-02] MEDS: Enoxaparin 40 MG/0.4 ML Syringe SUBCUT SCH (08:27)
[2020-09-02] MEDS: Acetaminophen 325 MG Tab PO PRN ×2 (08:28→19:31)
--- NOTE | 2020-09-02 12:35 | PCM.PN ---
- General Info Date of Service: 09/02/20 Admission Dx/Problem (Free Text): Admission Diagnosis/Problem Admission Diagnosis/Problem COVID-19 pneumonia Subjective Update: Stewart is a 35-year-old male with past medical history significant for hypertension, COVID-19 infection diagnosed on 08/20/2020. Patient was brought to the ED via EMS for increasing shortness of breath. He was subsequently admitted for acute respiratory failure with hypoxia due to COVID-[address] chest showed peripheral groundglass opacities. Today he continues to report shortness of breath. He indicates he gets shortness of breath with minimal exertion. He is on 2 L via nasal cannula. Remained afebrile overnight. No chest pain. No abdominal pain, nausea, vomiting. Vitals stable Labs reviewed Functional Status: Reports: Pain Controlled - Review of Systems General: Reports: No Symptoms HEENT: Reports: No Symptoms Pulmonary: Reports: No Symptoms Cardiovascular: Reports: No Symptoms Gastrointestinal: Reports: No Symptoms Genitourinary: Reports: No Symptoms Musculoskeletal: Reports: No Symptoms Skin: Reports: No Symptoms Neurological: Reports: No Symptoms Psychiatric: Reports: No Symptoms - Patient Data Vitals - Most Recent: Last Vital Signs Temp 99.8 F 09/02/20 08:00 Pulse 82 09/02/20 08:00 Resp 22 H 09/02/20 08:00 BP 121/72 09/02/20 08:00 Pulse Ox 93 L 09/02/20 08:00 Weight - Most Recent: 261 lb 9.6 oz I&O - Last 24 Hours: Intake & Output 09/01/20 09/02/20 09/02/20 22:59 06:59 14:59 Intake Total 400 Balance 400 Lab Results Last 24 Hours: Laboratory Results - last 24 hr 09/01/20 09/02/20 09/02/20 Range/Units 08:02 06:35 06:35 WBC 11.7 H (5.0-10.0) 10^3/uL RBC 5.13 (4.6-6.2) 10^6/uL Hgb 14.9 (14.0-18.0) g/dL Hct 43.3 (40.0-54.0) % MCV 84.4 (80-100) fL MCH 29.0 (27.0-34.0) pg MCHC 34.4 (33.0-35.0) g/dL Plt Count 230 (150-450) 10^3/uL PT 11.3 (9.0-12.0) SEC INR 1.2 (0.9-1.2) D-Dimer, Quantitative 174 (0-400) ng/mL Sodium (136-145) mmol/L Potassium (3.5-5.1) mmol/L Chloride (98-107) mmol/L Carbon Dioxide (21-32) mmol/L Anion Gap (7-13) mEq/L BUN (7-18) mg/dL Creatinine (0.70-1.30) mg/dL Est Cr Clr Drug Dosing mL/min Estimated GFR (MDRD) BUN/Creatinine Ratio (No establ ref range) Glucose (74-99) mg/dL POC Glucose (70-105) mg/dl Calcium (8.5-10.1) mg/dL Phosphorus (2.6-4.7) mg/dL Magnesium (1.8-2.4) mg/dL Ferritin (26-388) mg/mL Total Bilirubin (0.2-1.0) mg/dL AST (15-37) U/L ALT (16-63) U/L Alkaline Phosphatase (46-116) U/L Lactate Dehydrogenase (85-227) U/L Troponin I (0.000-0.056) ng/mL Total Protein (6.4-8.2) g/dL Albumin (3.4-5.0) g/dL Globulin Albumin/Globulin Ratio Procalcitonin 0.19 H (<0.10) ng/mL 09/02/20 09/02/20 09/02/20 Range/Units 06:35 06:35 08:12 WBC (5.0-10.0) 10^3/uL RBC (4.6-6.2) 10^6/uL Hgb (14.0-18.0) g/dL Hct (40.0-54.0) % MCV (80-100) fL MCH (27.0-34.0) pg MCHC (33.0-35.0) g/dL Plt Count (150-450) 10^3/uL PT (9.0-12.0) SEC INR (0.9-1.2) D-Dimer, Quantitative (0-400) ng/mL Sodium 138 (136-145) mmol/L Potassium 4.2 (3.5-5.1) mmol/L Chloride 102 (98-107) mmol/L Carbon Dioxide 26 (21-32) mmol/L Anion Gap 14.2 H (7-13) mEq/L BUN 18 (7-18) mg/dL Creatinine 0.99 (0.70-1.30) mg/dL Est Cr Clr Drug Dosing 91.28 mL/min Estimated GFR (MDRD) > 60 BUN/Creatinine Ratio 18.2 (No establ ref range) Glucose 125 H (74-99) mg/dL POC Glucose 121 H (70-105) mg/dl Calcium 8.4 L (8.5-10.1) mg/dL Phosphorus 3.4 (2.6-4.7) mg/dL Magnesium 2.0 (1.8-2.4) mg/dL Ferritin 1300 H (26-388) mg/mL Total Bilirubin 0.8 (0.2-1.0) mg/dL AST 29 (15-37) U/L ALT 49 (16-63) U/L Alkaline Phosphatase 64 (46-116) U/L Lactate Dehydrogenase 241 H (85-227) U/L Troponin I < 0.017 (0.000-0.056) ng/mL Total Protein 6.5 (6.4-8.2) g/dL Albumin 2.7 L (3.4-5.0) g/dL Globulin 3.8 Albumin/Globulin Ratio 0.71 Procalcitonin (<0.10) ng/mL [facility] Results Last 24 Hours: Microbiology 09/01/20 08:02 Aerobic Blood Culture - Preliminary Blood - Arm, Left NO GROWTH AFTER 1 DAY Anaerobic Blood Culture - Preliminary NO GROWTH AFTER 1 DAY Med Orders - Current: Current Medications Acetaminophen (Tylenol) 650 mg PO Q4H PRN PRN Reason: Pain (Mild 1-3)/fever Last Admin: 09/02/20 08:28 Dose: 650 mg Documented by: Alprazolam (Xanax) 0.5 mg PO BID PRN PRN Reason: Anxiety Benzonatate (Tessalon Perles) 200 mg PO TID [facility] Last Admin: 09/02/20 08:25 Dose: 200 mg Documented by: Dexamethasone (Dexamethasone) 6 mg PO DAILY [facility] Stop: 09/07/20 09:01 Last Admin: 09/02/20 08:23 Dose: 6 mg Documented by: Diphenhydramine HCl (Benadryl) 25 mg PO BEDTIME PRN PRN Reason: Insomnia Last Admin: 09/01/20 22:42 Dose: 25 mg Documented by: Enoxaparin Sodium (Lovenox) 40 mg SUBCUT DAILY [facility] Last Admin: 09/02/20 08:27 Dose: 40 mg Documented by: Furosemide (Lasix) 40 mg IV BID DRE Ceftriaxone Sodium 1 gm/ (Sodium Chloride) 50 mls @ 100 mls/hr IV Q24H DRE Azithromycin 500 mg/ Sodium (Chloride) 250 mls @ 250 mls/hr IV Q24H DRE Ondansetron HCl (Zofran) 4 mg IVPUSH Q6H PRN PRN Reason: Nausea/Vomiting Sertraline HCl (Zoloft) 50 mg PO BEDTIME DRE Last Admin: 09/01/20 22:41 Dose: 50 mg Documented by: Discontinued Medications Dexamethasone (Decadron) 6 mg IVPUSH ONETIME ONE Stop: 09/01/20 08:34 Last Admin: 09/01/20 08:51 Dose: 6 mg Documented by: Azithromycin 500 mg/ Sodium (Chloride) 250 mls @ 250 mls/hr IV ONETIME ONE Stop: 09/01/20 11:26 Last Admin: 09/01/20 10:38 Dose: 250 mls/hr Documented by: Ceftriaxone Sodium 1 gm/ (Sodium Chloride) 50 mls @ 100 mls/hr IV ONETIME ONE Stop: 09/01/20 10:56 Last Admin: 09/01/20 12:39 Dose: 100 mls/hr Documented by: - Exam Quality Assessment: Supplemental Oxygen, DVT Prophylaxis General: Alert, Oriented HEENT: Pupils Equal, Pupils Reactive, EOMI, Mucous Membr. Moist/[place] Neck: Supple Lungs: Clear to Auscultation, Normal Respiratory Effort Cardiovascular: Regular Rate, Regular Rhythm GI/Abdominal Exam: Normal Bowel Sounds, Soft, Non-Tender, No Organomegaly, No Distention, No Abnormal Bruit, No Mass, Pelvis Stable (Male) Exam: No Hernia, Normal Inspection, Normal Prostate, Circumcised Back Exam: Normal Inspection, Full Range of Motion Extremities: Normal Inspection, Normal Range of Motion, Non-Tender, No Pedal Edema, Normal Capillary Refill Skin: Warm, Dry, Intact Wound/Incisions: Healing Well Neurological: No New Focal Deficit Psy/Mental Status: Alert, Normal Affect, Normal Mood Sepsis Event Note - Evaluation Sepsis Screening Result: No Definite Risk - Focused Exam Vital Signs: Vital Signs Temp Pulse Resp BP Pulse Ox 09/02/20 08:00 99.8 F 82 22 H 121/72 93 L - Problem List & Annotations (1) Acute respiratory failure with hypoxia SNOMED Code(s): 15342160, 582762998 Code(s): J96.01 - ACUTE RESPIRATORY FAILURE WITH HYPOXIA Status: Acute Current Visit: Yes (2) Hypertension SNOMED Code(s): 19976956 Code(s): I10 - ESSENTIAL (PRIMARY) HYPERTENSION Status: Acute Current Visit: Yes (3) Depression SNOMED Code(s): 99324312 Code(s): F32.9 - MAJOR DEPRESSIVE DISORDER, SINGLE EPISODE, UNSPECIFIED Status: Acute Current Visit: Yes - Problem List Review Problem List Initiated/Reviewed/Updated: Yes - My Orders Last 24 Hours: My Active Orders 09/01/20 11:44 Ambulate [RC] ASDIRECTED Intake and Output [RC] QSHIFT Oxygen Therapy [RC] .PRN Pulse Oximetry [RC] .PRN VTE/DVT Education [RC] PER UNIT ROUTINE Vital Signs [RC] 00,04,08,12,16,20 Acetaminophen [TylenoL] 650 mg PO Q4H PRN Ondansetron [Zofran] 4 mg IVPUSH Q6H PRN Resuscitation Status Routine 09/01/20 11:45 Notify Provider Vital Signs [RC] ASDIRECTED 09/01/20 Lunch Regular Diet [DIET] 09/01/20 14:00 Benzonatate [Tessalon Perles] 200 mg PO TID 09/01/20 15:02 Communication Order [RC] 09/01/20 16:27 Isolation [COMM] Routine 09/01/20 19:17 diphenhydrAMINE [Benadryl] 25 mg PO BEDTIME PRN 09/01/20 21:00 Sertraline [Zoloft] 50 mg PO BEDTIME 09/02/20 09:00 Enoxaparin [Lovenox] 40 mg SUBCUT DAILY dexAMETHasone 6 mg PO DAILY 09/02/20 12:21 ALPRAZolam [Xanax] 0.5 mg PO BID PRN 09/02/20 12:30 Azithromycin [Zithromax] 500 mg Sodium Chloride 0.9% [Normal Saline (AdvBag)] 250 ml IV Q24H cefTRIAXone [Rocephin] 1 gm Sodium Chloride 0.9% [Normal Saline] 50 ml IV Q24H 09/02/20 17:00 Furosemide [Lasix] 40 mg IV BID 09/03/20 07:00 C-REACTIVE PROTEIN [REF] DAILY CBC W/O DIFF,HEMOGRAM [HEME] DAILY COMPREHENSIVE METABOLIC PN,CMP [CHEM] DAILY D-DIMER QUANTITATIVE [COAG] DAILY FERRITIN [CHEM] DAILY INR,PT,PROTHROMBIN TIME [COAG] DAILY LACTATE DEHYDROGENASE,LDH [CHEM] DAILY MAGNESIUM [CHEM] DAILY PHOSPHORUS [CHEM] DAILY TROPONIN I [CHEM] DAILY 09/04/20 07:00 C-REACTIVE PROTEIN [REF] DAILY CBC W/O DIFF,HEMOGRAM [HEME] DAILY COMPREHENSIVE METABOLIC PN,CMP [CHEM] DAILY D-DIMER QUANTITATIVE [COAG] DAILY FERRITIN [CHEM] DAILY INR,PT,PROTHROMBIN TIME [COAG] DAILY LACTATE DEHYDROGENASE,LDH [CHEM] DAILY MAGNESIUM [CHEM] DAILY PHOSPHORUS [CHEM] DAILY TROPONIN I [CHEM] DAILY 09/05/20 07:00 C-REACTIVE PROTEIN [REF] DAILY CBC W/O DIFF,HEMOGRAM [HEME] DAILY COMPREHENSIVE METABOLIC PN,CMP [CHEM] DAILY D-DIMER QUANTITATIVE [COAG] DAILY FERRITIN [CHEM] DAILY INR,PT,PROTHROMBIN TIME [COAG] DAILY LACTATE DEHYDROGENASE,LDH [CHEM] DAILY MAGNESIUM [CHEM] DAILY PHOSPHORUS [CHEM] DAILY TROPONIN I [CHEM] DAILY 09/06/20 07:00 C-REACTIVE PROTEIN [REF] DAILY CBC W/O DIFF,HEMOGRAM [HEME] DAILY COMPREHENSIVE METABOLIC PN,CMP [CHEM] DAILY D-DIMER QUANTITATIVE [COAG] DAILY FERRITIN [CHEM] DAILY INR,PT,PROTHROMBIN TIME [COAG] DAILY LACTATE DEHYDROGENASE,LDH [CHEM] DAILY MAGNESIUM [CHEM] DAILY PHOSPHORUS [CHEM] DAILY TROPONIN I [CHEM] DAILY 09/07/20 07:00 C-REACTIVE PROTEIN [REF] DAILY - Plan Plan:: #COVID-19 pneumonia #Acute respiratory failure with hypoxia due to above Patient diagnosed of COVID-19 on 08/20/2020 He has been recuperating at home but symptom gotten worse He was hypoxic requiring supplemental oxygen CT chest shows peripheral groundglass opacity Continue supplemental oxygen and wean off as able Procalcitonin elevated Continue ceftriaxone and azithromycin Patient would not benefit from remdesivir Give 2 unit of convalescent plasma Continue IV dexamethasone Daily COVID-19 labs #Hypertension BP within acceptable limits Continue home medication Monitor BP closely #Depression Continue Zoloft #Obesity Advised to lose weight #Physical debility Physical therapy #Cardiac diet #Full code
[2020-09-02] MEDS: ALPRAZolam 0.5 MG Tab PO PRN ×2 (13:27→21:44)
[2020-09-02] MEDS: Furosemide 40 MG/4 ML VIAL IV SCH (13:28)
[2020-09-02] MEDS: cefTRIAXone 1 GM in Sodium Chloride 0.9% 50 ML IV SCH (13:30)
[2020-09-02] MEDS: Azithromycin 500 MG in Sodium Chloride 0.9% 250 ML IV SCH (13:30)
[2020-09-02] MEDS: Sertraline 50 MG Tab PO SCH (21:44)
[2020-09-02] MEDS: diphenhydrAMINE 25 MG Tab PO PRN (21:44)
[2020-09-03] MEDS: Acetaminophen 325 MG Tab PO PRN ×2 (03:10→09:24)
[2020-09-03 07:06] LABS: CHLORIDE,CL 102 mmol/L (98-107); SODIUM,NA 136 mmol/L (136-145)
[2020-09-03] MEDS: ALPRAZolam 0.5 MG Tab PO PRN ×2 (09:24→20:55)
[2020-09-03] MEDS: Benzonatate 100 MG Cap PO SCH ×3 (09:26→20:55)
[2020-09-03] MEDS: Enoxaparin 40 MG/0.4 ML Syringe SUBCUT SCH (09:27)
[2020-09-03] MEDS: Furosemide 40 MG/4 ML VIAL IV SCH ×2 (09:28→14:32)
[2020-09-03] MEDS: Dexamethasone 4 MG Tab PO SCH (09:34)
--- NOTE | 2020-09-03 10:56 | PCM.PN ---
- General Info Date of Service: 09/03/20 Admission Dx/Problem (Free Text): Admission Diagnosis/Problem Admission Diagnosis/Problem COVID-19 pneumonia Subjective Update: Stewart is a 35-year-old male with past medical history significant for hypertension, COVID-19 infection diagnosed on 08/20/2020. Patient was brought to the ED via EMS for increasing shortness of breath. He was subsequently admitted for acute respiratory failure with hypoxia due to COVID-[address] chest showed peripheral groundglass opacities. Today patient was seen and examined. He was seen sitting up in chair. His overall condition remained the same. Patient actually required increased supplemental oxygen this morning. His supplemental oxygen was increased to 4 L via nasal cannula. He is still complaining of difficulty breathing and dyspnea with exertion. He remained weak. He remained afebrile. He denies chest pain, no abdominal pain, no nausea or vomiting. Repeat chest rate this morning shows bilateral infiltrates. Patient was advised to walk around in the room and use incentive spirometer. Functional Status: Reports: Pain Controlled - Review of Systems General: Reports: No Symptoms, Weakness HEENT: Reports: No Symptoms Pulmonary: Reports: Shortness of Breath Cardiovascular: Reports: No Symptoms Gastrointestinal: Reports: No Symptoms Genitourinary: Reports: No Symptoms Musculoskeletal: Reports: No Symptoms Skin: Reports: No Symptoms Neurological: Reports: No Symptoms Psychiatric: Reports: No Symptoms - Patient Data Vitals - Most Recent: Last Vital Signs Temp 98.8 F 09/03/20 08:00 Pulse 86 09/03/20 08:00 Resp 24 H 09/03/20 08:00 BP 124/74 09/03/20 08:00 Pulse Ox 94 L 09/03/20 08:00 Weight - Most Recent: 261 lb 9.6 oz I&O - Last 24 Hours: Intake & Output 09/02/20 09/03/20 09/03/20 22:59 06:59 14:59 Intake Total 950 200 100 Output Total 400 400 Balance 550 -200 100 Lab Results Last 24 Hours: Laboratory Results - last 24 hr 09/02/20 09/03/20 09/03/20 Range/Units 06:35 06:31 06:31 WBC 10.7 H (5.0-10.0) 10^3/uL RBC 5.10 (4.6-6.2) 10^6/uL Hgb 14.8 (14.0-18.0) g/dL Hct 43.0 (40.0-54.0) % MCV 84.3 (80-100) fL MCH 29.0 (27.0-34.0) pg MCHC 34.4 (33.0-35.0) g/dL Plt Count 253 (150-450) 10^3/uL PT 11.7 (9.0-12.0) SEC INR 1.2 (0.9-1.2) D-Dimer, Quantitative 179 (0-400) ng/mL Sodium (136-145) mmol/L Potassium (3.5-5.1) mmol/L Chloride (98-107) mmol/L Carbon Dioxide (21-32) mmol/L Anion Gap (7-13) mEq/L BUN (7-18) mg/dL Creatinine (0.70-1.30) mg/dL Est Cr Clr Drug Dosing mL/min Estimated GFR (MDRD) BUN/Creatinine Ratio (No establ ref range) Glucose (74-99) mg/dL Calcium (8.5-10.1) mg/dL Phosphorus (2.6-4.7) mg/dL Magnesium (1.8-2.4) mg/dL Ferritin (26-388) mg/mL Total Bilirubin (0.2-1.0) mg/dL AST (15-37) U/L ALT (16-63) U/L Alkaline Phosphatase (46-116) U/L Lactate Dehydrogenase (85-227) U/L Troponin I (0.000-0.056) ng/mL C-Reactive Protein (0.0-0.9) mg/dL Total Protein (6.4-8.2) g/dL Albumin (3.4-5.0) g/dL Globulin Albumin/Globulin Ratio Blood Type A POSITIVE 09/03/20 09/03/20 Range/Units 06:31 06:31 WBC (5.0-10.0) 10^3/uL RBC (4.6-6.2) 10^6/uL Hgb (14.0-18.0) g/dL Hct (40.0-54.0) % MCV (80-100) fL MCH (27.0-34.0) pg MCHC (33.0-35.0) g/dL Plt Count (150-450) 10^3/uL PT (9.0-12.0) SEC INR (0.9-1.2) D-Dimer, Quantitative (0-400) ng/mL Sodium 136 (136-145) mmol/L Potassium 4.0 (3.5-5.1) mmol/L Chloride 102 (98-107) mmol/L Carbon Dioxide 27 (21-32) mmol/L Anion Gap 11.0 (7-13) mEq/L BUN 22 H (7-18) mg/dL Creatinine 1.00 (0.70-1.30) mg/dL Est Cr Clr Drug Dosing 90.37 mL/min Estimated GFR (MDRD) > 60 BUN/Creatinine Ratio 22.0 (No establ ref range) Glucose 102 H (74-99) mg/dL Calcium 8.2 L (8.5-10.1) mg/dL Phosphorus 3.7 (2.6-4.7) mg/dL Magnesium 2.1 (1.8-2.4) mg/dL Ferritin 1375 H (26-388) mg/mL Total Bilirubin 0.8 (0.2-1.0) mg/dL AST 37 (15-37) U/L ALT 68 H (16-63) U/L Alkaline Phosphatase 64 (46-116) U/L Lactate Dehydrogenase 293 H (85-227) U/L Troponin I < 0.017 (0.000-0.056) ng/mL C-Reactive Protein 4.1 H (0.0-0.9) mg/dL Total Protein 6.4 (6.4-8.2) g/dL Albumin 2.6 L (3.4-5.0) g/dL Globulin 3.8 Albumin/Globulin Ratio 0.68 Blood Type [facility]tt Results Last 24 Hours: Microbiology 09/01/20 08:02 Aerobic Blood Culture - Preliminary Blood - Arm, Left NO GROWTH AFTER 2 DAYS Anaerobic Blood Culture - Preliminary NO GROWTH AFTER 2 DAYS Med Orders - Current: Current Medications Acetaminophen (Tylenol) 650 mg PO Q4H PRN PRN Reason: Pain (Mild 1-3)/fever Last Admin: 09/03/20 09:24 Dose: 650 mg Documented by: Albuterol (Proventil Hfa) 0 gm INH Q4H PRN PRN Reason: Shortness of Breath Alprazolam (Xanax) 0.5 mg PO BID PRN PRN Reason: Anxiety Last Admin: 09/03/20 09:24 Dose: 0.5 mg Documented by: Benzonatate (Tessalon Perles) 200 mg PO TID [facility] Last Admin: 09/03/20 09:26 Dose: 200 mg Documented by: Dexamethasone (Dexamethasone) 6 mg PO DAILY [facility] Stop: 09/07/20 09:01 Last Admin: 09/03/20 09:34 Dose: 6 mg Documented by: Diphenhydramine HCl (Benadryl) 25 mg PO BEDTIME PRN PRN Reason: Insomnia Last Admin: 09/02/20 21:44 Dose: 25 mg Documented by: Enoxaparin Sodium (Lovenox) 40 mg SUBCUT DAILY [facility] Last Admin: 09/03/20 09:27 Dose: 40 mg Documented by: Furosemide (Lasix) 40 mg IV BIDDIURETIC [facility] Last Admin: 09/03/20 09:28 Dose: 40 mg Documented by: Ceftriaxone Sodium 1 gm/ (Sodium Chloride) 50 mls @ 100 mls/hr IV Q24H [facility] Last Admin: 09/02/20 13:30 Dose: 100 mls/hr Documented by: Azithromycin 500 mg/ Sodium (Chloride) 250 mls @ 250 mls/hr IV Q24H [facility] Last Admin: 09/02/20 13:30 Dose: 250 mls/hr Documented by: Ondansetron HCl (Zofran) 4 mg IVPUSH Q6H PRN PRN Reason: Nausea/Vomiting Sertraline HCl (Zoloft) 50 mg PO BEDTIME [facility] Last Admin: 09/02/20 21:44 Dose: 50 mg Documented by: Sodium Chloride (Saline Flush) 10 ml FLUSH ASDIRECTED PRN PRN Reason: IV Use Discontinued Medications Dexamethasone (Decadron) 6 mg IVPUSH ONETIME ONE Stop: 09/01/20 08:34 Last Admin: 09/01/20 08:51 Dose: 6 mg Documented by: Azithromycin 500 mg/ Sodium (Chloride) 250 mls @ 250 mls/hr IV ONETIME ONE Stop: 09/01/20 11:26 Last Admin: 09/01/20 10:38 Dose: 250 mls/hr Documented by: Ceftriaxone Sodium 1 gm/ (Sodium Chloride) 50 mls @ 100 mls/hr IV ONETIME ONE Stop: 09/01/20 10:56 Last Admin: 09/01/20 12:39 Dose: 100 mls/hr Documented by: - Exam Quality Assessment: Supplemental Oxygen, DVT Prophylaxis General: Alert, Oriented HEENT: Pupils Equal, Pupils Reactive, EOMI, Mucous Membr. Moist/[place] Neck: Supple Lungs: Clear to Auscultation, Normal Respiratory Effort Cardiovascular: Regular Rate, Regular Rhythm GI/Abdominal Exam: Normal Bowel Sounds, Soft, Non-Tender, No Organomegaly, No Distention, No Abnormal Bruit, No Mass, Pelvis Stable (Male) Exam: No Hernia, Normal Inspection, Normal Prostate, Circumcised Back Exam: Normal Inspection, Full Range of Motion Extremities: Normal Inspection, Normal Range of Motion, Non-Tender, No Pedal Edema, Normal Capillary Refill Skin: Warm, Dry, Intact Wound/Incisions: Healing Well Neurological: No New Focal Deficit Psy/Mental Status: Alert, Normal Affect, Normal Mood Sepsis Event Note - Evaluation Sepsis Screening Result: No Definite Risk - Focused Exam Vital Signs: Vital Signs Temp Pulse Resp BP Pulse Ox 09/03/20 08:00 98.8 F 86 24 H 124/74 94 L 09/03/20 05:22 99.3 F 24 H 93 L 09/03/20 03:00 99.5 F 75 20 120/72 89 L - Problem List & Annotations (1) Acute respiratory failure with hypoxia SNOMED Code(s): 07304598, 717276630 Code(s): J96.01 - ACUTE RESPIRATORY FAILURE WITH HYPOXIA Status: Acute Current Visit: Yes (2) Hypertension SNOMED Code(s): 61218627 Code(s): I10 - ESSENTIAL (PRIMARY) HYPERTENSION Status: Acute Current Visit: Yes (3) Depression SNOMED Code(s): 40309665 Code(s): F32.9 - MAJOR DEPRESSIVE DISORDER, SINGLE EPISODE, UNSPECIFIED Status: Acute Current Visit: Yes - Problem List Review Problem List Initiated/Reviewed/Updated: Yes - My Orders Last 24 Hours: My Active Orders 09/02/20 12:21 ALPRAZolam [Xanax] 0.5 mg PO BID PRN 09/02/20 12:30 Azithromycin [Zithromax] 500 mg Sodium Chloride 0.9% [Normal Saline (AdvBag)] 250 ml IV Q24H cefTRIAXone [Rocephin] 1 gm Sodium Chloride 0.9% [Normal Saline] 50 ml IV Q24H 09/02/20 12:35 Transfuse Fresh Frozen Plasma [COMM] Routine 09/02/20 14:00 Furosemide [Lasix] 40 mg IV BIDDIURETIC 09/02/20 22:42 Sodium Chloride 0.9% [Saline Flush] 10 ml FLUSH ASDIRECTED PRN 09/03/20 08:48 Antiembolic Devices [RC] CLARA Hose [Antiembolic Hose] [OM.PC] Routine 09/03/20 09:07 CXR [Chest 1V Frontal] [CR] Routine 09/03/20 10:10 Albuterol [Proventil HFA] 0 gm INH Q4H PRN 09/03/20 10:11 RT Post Treatment Assessment [RC] Click to Edit RT Pre-Treatment Assessment [RC] Click to Edit 09/03/20 10:26 Patient Status [ADT] Routine 09/04/20 07:00 C-REACTIVE PROTEIN [REF] DAILY CBC W/O DIFF,HEMOGRAM [HEME] DAILY COMPREHENSIVE METABOLIC PN,CMP [CHEM] DAILY D-DIMER QUANTITATIVE [COAG] DAILY FERRITIN [CHEM] DAILY INR,PT,PROTHROMBIN TIME [COAG] DAILY LACTATE DEHYDROGENASE,LDH [CHEM] DAILY MAGNESIUM [CHEM] DAILY PHOSPHORUS [CHEM] DAILY TROPONIN I [CHEM] DAILY 09/05/20 07:00 C-REACTIVE PROTEIN [REF] DAILY CBC W/O DIFF,HEMOGRAM [HEME] DAILY COMPREHENSIVE METABOLIC PN,CMP [CHEM] DAILY D-DIMER QUANTITATIVE [COAG] DAILY FERRITIN [CHEM] DAILY INR,PT,PROTHROMBIN TIME [COAG] DAILY LACTATE DEHYDROGENASE,LDH [CHEM] DAILY MAGNESIUM [CHEM] DAILY PHOSPHORUS [CHEM] DAILY TROPONIN I [CHEM] DAILY 09/06/20 07:00 C-REACTIVE PROTEIN [REF] DAILY CBC W/O DIFF,HEMOGRAM [HEME] DAILY COMPREHENSIVE METABOLIC PN,CMP [CHEM] DAILY D-DIMER QUANTITATIVE [COAG] DAILY FERRITIN [CHEM] DAILY INR,PT,PROTHROMBIN TIME [COAG] DAILY LACTATE DEHYDROGENASE,LDH [CHEM] DAILY MAGNESIUM [CHEM] DAILY PHOSPHORUS [CHEM] DAILY TROPONIN I [CHEM] DAILY 09/07/20 07:00 C-REACTIVE PROTEIN [REF] DAILY - Plan Plan:: #COVID-19 pneumonia #Acute respiratory failure with hypoxia due to above Patient diagnosed of COVID-19 on 08/20/2020 He has been recuperating at home but symptom got worse He was hypoxic requiring supplemental oxygen CT chest shows peripheral groundglass opacity Continue supplemental oxygen and wean off as able Procalcitonin elevated Continue ceftriaxone and azithromycin Patient would not benefit from remdesivir I will administer 2 unit of convalescent plasma given that he is notes improving as expected even though he is more than 3 days from day of diagnosis. Continue dexamethasone to complete 10 days course Daily COVID-19 labs #Hypertension BP within acceptable limits Continue home medication Monitor BP closely #Depression/ Continue Zoloft and alprazolam #Obesity Advised to lose weight #Physical debility Physical therapy #Cardiac diet #Full code
--- NOTE | 2020-09-03 11:11 | CR ---
EXAMINATION: Chest 1V Frontal SEX: Male AGE: 65 years CLINICAL HISTORY: 65-year-old male with clinical "pneumonia". Comparison exams 28 August and 06 May 2020. Interpretation: Abnormal. 1. Patchy bibasilar atelectatic/infiltrative-like densities increased since 28 August and new since 06 May. Note: Generally poor inspiratory effort. 2. Normal cardiac silhouette (size and configuration). 3. No pulmonary vascular congestion, cephalization of vascular flow, new alveolar edema or dependent pleural fluid accumulation (effusion). 4. No new lung mass or hilar lymphadenopathy. 5. No other focal lobar consolidation or peripheral "groundglass" lung densities. 6. Orthopedic prosthesis right shoulder. Oxygen cannula. 7. No pneumothorax or pneumomediastinum. Midline tracheal bronchial airway unremarkable.
[2020-09-03] MEDS: cefTRIAXone 1 GM in Sodium Chloride 0.9% 50 ML IV SCH (12:05)
[2020-09-03] MEDS: Albuterol 6.7 GM Inhaler INH PRN ×2 (12:10→18:33)
[2020-09-03] MEDS: Azithromycin 500 MG in Sodium Chloride 0.9% 250 ML IV SCH (12:20)
[2020-09-03] MEDS: Acetaminophen/HYDROcodone 325-5 MG Tab PO PRN ×3 (14:32→22:57)
[2020-09-03] MEDS: Sertraline 50 MG Tab PO SCH (20:55)
[2020-09-03] MEDS: diphenhydrAMINE 25 MG Tab PO PRN (20:55)
[2020-09-03] MEDS: guaiFENesin 100 MG/5 ML Soln 5 ML UD Cup PO PRN (20:55)
[2020-09-04 07:12] LABS: ANION GAP 12.1 mEq/L (7-13); CHLORIDE,CL 101 mmol/L (98-107); SODIUM,NA 138 mmol/L (136-145)
[2020-09-04] MEDS: Dexamethasone 4 MG Tab PO SCH (08:26)
[2020-09-04] MEDS: Benzonatate 100 MG Cap PO SCH ×3 (08:26→20:03)
[2020-09-04] MEDS: Acetaminophen/HYDROcodone 325-5 MG Tab PO PRN ×2 (08:27→20:02)
[2020-09-04] MEDS: Furosemide 40 MG/4 ML VIAL IV SCH ×2 (08:27→14:12)
[2020-09-04] MEDS: ALPRAZolam 0.5 MG Tab PO PRN ×2 (08:28→22:02)
[2020-09-04] MEDS: Enoxaparin 40 MG/0.4 ML Syringe SUBCUT SCH (08:29)
--- NOTE | 2020-09-04 10:41 | PCM.PN ---
- General Info Date of Service: 09/04/20 Admission Dx/Problem (Free Text): Admission Diagnosis/Problem Admission Diagnosis/Problem COVID-19 pneumonia Subjective Update: Stewart is a 35-year-old male with past medical history significant for hypertension, COVID-19 infection diagnosed on 08/20/2020. Patient was brought to the ED via EMS for increasing shortness of breath. He was subsequently admitted for acute respiratory failure with hypoxia due to COVID-[address] chest showed peripheral groundglass opacities. Today patient was seen and examined. He was seen sitting up in chair. Patient looking better than yesterday. Dyspnea with exertion improving. He still reports chest pain with cough. Appetite is gradually improving. Patient ambulating in room. He is still requiring 5 L via nasal cannula. Labs generally looks unremarkable. Was unable to receive convalescent plasma yesterday as ordered. Functional Status: Reports: Pain Controlled - Review of Systems General: Reports: No Symptoms HEENT: Reports: No Symptoms Pulmonary: Reports: No Symptoms Cardiovascular: Reports: No Symptoms Gastrointestinal: Reports: No Symptoms Genitourinary: Reports: No Symptoms Musculoskeletal: Reports: No Symptoms Skin: Reports: No Symptoms Neurological: Reports: No Symptoms Psychiatric: Reports: No Symptoms - Patient Data Vitals - Most Recent: Last Vital Signs Temp 98.2 F 09/04/20 08:00 Pulse 86 09/04/20 08:00 Resp 20 09/04/20 08:00 BP 109/75 09/04/20 08:00 Pulse Ox 90 L 09/04/20 08:00 Weight - Most Recent: 261 lb 9.6 oz I&O - Last 24 Hours: Intake & Output 09/03/20 09/04/20 09/04/20 22:59 06:59 14:59 Intake Total 420 100 770 Output Total 1900 Balance -1480 100 770 Lab Results Last 24 Hours: Laboratory Results - last 24 hr 09/04/20 09/04/20 09/04/20 Range/Units 06:23 06:23 06:23 WBC 9.7 (5.0-10.0) 10^3/uL RBC 5.32 (4.6-6.2) 10^6/uL Hgb 15.4 (14.0-18.0) g/dL Hct 44.5 (40.0-54.0) % MCV 83.6 (80-100) fL MCH 28.9 (27.0-34.0) pg MCHC 34.6 (33.0-35.0) g/dL Plt Count 290 (150-450) 10^3/uL PT 11.2 (9.0-12.0) SEC INR 1.2 (0.9-1.2) D-Dimer, Quantitative 124 (0-400) ng/mL Sodium 138 (136-145) mmol/L Potassium 4.1 (3.5-5.1) mmol/L Chloride 101 (98-107) mmol/L Carbon Dioxide 29 (21-32) mmol/L Anion Gap 12.1 (7-13) mEq/L BUN 24 H (7-18) mg/dL Creatinine 0.99 (0.70-1.30) mg/dL Est Cr Clr Drug Dosing 91.28 mL/min Estimated GFR (MDRD) > 60 BUN/Creatinine Ratio 24.2 (No establ ref range) Glucose 120 H (74-99) mg/dL Calcium 8.6 (8.5-10.1) mg/dL Phosphorus 4.0 (2.6-4.7) mg/dL Magnesium 2.2 (1.8-2.4) mg/dL Ferritin (26-388) mg/mL Total Bilirubin 0.8 (0.2-1.0) mg/dL AST 33 (15-37) U/L ALT 75 H (16-63) U/L Alkaline Phosphatase 70 (46-116) U/L Lactate Dehydrogenase 222 (85-227) U/L Troponin I < 0.017 (0.000-0.056) ng/mL C-Reactive Protein 3.7 H (0.0-0.9) mg/dL Total Protein 6.9 (6.4-8.2) g/dL Albumin 2.7 L (3.4-5.0) g/dL Globulin 4.2 Albumin/Globulin Ratio 0.64 // Range/Units 06:23 WBC (5.0-10.0) 10^3/uL RBC (4.6-6.2) 10^6/uL Hgb (14.0-18.0) g/dL Hct (40.0-54.0) % MCV (80-100) fL MCH (27.0-34.0) pg MCHC (33.0-35.0) g/dL Plt Count (150-450) 10^3/uL PT (9.0-12.0) SEC INR (0.9-1.2) D-Dimer, Quantitative (0-400) ng/mL Sodium (136-145) mmol/L Potassium (3.5-5.1) mmol/L Chloride (98-107) mmol/L Carbon Dioxide (21-32) mmol/L Anion Gap (7-13) mEq/L BUN (7-18) mg/dL Creatinine (0.70-1.30) mg/dL Est Cr Clr Drug Dosing mL/min Estimated GFR (MDRD) BUN/Creatinine Ratio (No establ ref range) Glucose (74-99) mg/dL Calcium (8.5-10.1) mg/dL Phosphorus (2.6-4.7) mg/dL Magnesium (1.8-2.4) mg/dL Ferritin 1503 H (26-388) mg/mL Total Bilirubin (0.2-1.0) mg/dL AST (15-37) U/L ALT (16-63) U/L Alkaline Phosphatase (46-116) U/L Lactate Dehydrogenase (85-227) U/L Troponin I (0.000-0.056) ng/mL C-Reactive Protein (0.0-0.9) mg/dL Total Protein (6.4-8.2) g/dL Albumin (3.4-5.0) g/dL Globulin Albumin/Globulin Ratio [place] Results Last 24 Hours: Microbiology 09/01/20 08:02 Aerobic Blood Culture - Preliminary Blood - Arm, Left NO GROWTH AFTER 3 DAYS Anaerobic Blood Culture - Preliminary NO GROWTH AFTER 3 DAYS Med Orders - Current: Current Medications Acetaminophen (Tylenol) 650 mg PO Q4H PRN PRN Reason: Pain (Mild 1-3)/fever Last Admin: 09/03/20 09:24 Dose: 650 mg Documented by: Hydrocodone Bitart/Acetaminophen ([place] 325-5 Mg) 1 tab PO Q4H PRN PRN Reason: Pain Last Admin: 09/04/20 08:27 Dose: 1 tab Documented by: Albuterol (Proventil Hfa) 0 gm INH Q4H PRN PRN Reason: Shortness of Breath Last Admin: 09/03/20 18:33 Dose: 2 puff Documented by: Alprazolam (Xanax) 0.5 mg PO BID PRN PRN Reason: Anxiety Last Admin: 09/04/20 08:28 Dose: 0.5 mg Documented by: Benzonatate (Tessalon Perles) 200 mg PO TID [facility] Last Admin: 09/04/20 08:26 Dose: 200 mg Documented by: Dexamethasone (Dexamethasone) 6 mg PO DAILY [facility] Stop: 09/07/20 09:01 Last Admin: 09/04/20 08:26 Dose: 6 mg Documented by: Diphenhydramine HCl (Benadryl) 25 mg PO BEDTIME PRN PRN Reason: Insomnia Last Admin: 09/03/20 20:55 Dose: 25 mg Documented by: Enoxaparin Sodium (Lovenox) 40 mg SUBCUT DAILY [facility] Last Admin: 09/04/20 08:29 Dose: 40 mg Documented by: Furosemide (Lasix) 40 mg IV BIDDIURETIC [facility] Last Admin: 09/04/20 08:27 Dose: 40 mg Documented by: Guaifenesin (Robitussin) 100 mg PO Q6H PRN PRN Reason: Cough Last Admin: 09/03/20 20:55 Dose: 100 mg Documented by: Ceftriaxone Sodium 1 gm/ (Sodium Chloride) 50 mls @ 100 mls/hr IV Q24H [facility] Last Admin: 09/03/20 12:05 Dose: 100 mls/hr Documented by: Azithromycin 500 mg/ Sodium (Chloride) 250 mls @ 250 mls/hr IV Q24H [facility] Last Admin: 09/03/20 12:20 Dose: 250 mls/hr Documented by: Ondansetron HCl (Zofran) 4 mg IVPUSH Q6H PRN PRN Reason: Nausea/Vomiting Sertraline HCl (Zoloft) 50 mg PO BEDTIME [facility] Last Admin: 09/03/20 20:55 Dose: 50 mg Documented by: Sodium Chloride (Saline Flush) 10 ml FLUSH ASDIRECTED PRN PRN Reason: IV Use Discontinued Medications Dexamethasone (Decadron) 6 mg IVPUSH ONETIME ONE Stop: 09/01/20 08:34 Last Admin: 09/01/20 08:51 Dose: 6 mg Documented by: Azithromycin 500 mg/ Sodium (Chloride) 250 mls @ 250 mls/hr IV ONETIME ONE Stop: 09/01/20 11:26 Last Admin: 09/01/20 10:38 Dose: 250 mls/hr Documented by: Ceftriaxone Sodium 1 gm/ (Sodium Chloride) 50 mls @ 100 mls/hr IV ONETIME ONE Stop: 09/01/20 10:56 Last Admin: 09/01/20 12:39 Dose: 100 mls/hr Documented by: - Exam Quality Assessment: Supplemental Oxygen, DVT Prophylaxis General: Alert, Oriented HEENT: Pupils Equal, Pupils Reactive, EOMI, Mucous Membr. Moist/[place] Neck: Supple Lungs: Clear to Auscultation, Normal Respiratory Effort Cardiovascular: Regular Rate, Regular Rhythm GI/Abdominal Exam: Normal Bowel Sounds, Soft, Non-Tender, No Organomegaly, No Distention, No Abnormal Bruit, No Mass, Pelvis Stable (Male) Exam: No Hernia, Normal Inspection, Normal Prostate, Circumcised Back Exam: Normal Inspection, Full Range of Motion Extremities: Normal Inspection, Normal Range of Motion, Non-Tender, No Pedal Edema, Normal Capillary Refill Skin: Warm, Dry, Intact Wound/Incisions: Healing Well Neurological: No New Focal Deficit Psy/Mental Status: Alert, Normal Affect, Normal Mood Sepsis Event Note - Evaluation Sepsis Screening Result: No Definite Risk - Focused Exam Vital Signs: Vital Signs Temp Pulse Resp BP Pulse Ox 09/04/20 08:00 98.2 F 86 20 109/75 90 L 09/04/20 04:00 22 H 94 L 09/04/20 00:00 70 93 L - Problem List & Annotations (1) Acute respiratory failure with hypoxia SNOMED Code(s): 77489165, 319894684 Code(s): J96.01 - ACUTE RESPIRATORY FAILURE WITH HYPOXIA Status: Acute Current Visit: Yes (2) Hypertension SNOMED Code(s): 43176803 Code(s): I10 - ESSENTIAL (PRIMARY) HYPERTENSION Status: Acute Current Visit: Yes (3) Depression SNOMED Code(s): 79591510 Code(s): F32.9 - MAJOR DEPRESSIVE DISORDER, SINGLE EPISODE, UNSPECIFIED Status: Acute Current Visit: Yes - Problem List Review Problem List Initiated/Reviewed/Updated: Yes - My Orders Last 24 Hours: My Active Orders 09/03/20 10:10 Albuterol [Proventil HFA] 0 gm INH Q4H PRN 09/03/20 10:11 RT Post Treatment Assessment [RC] Click to Edit RT Pre-Treatment Assessment [RC] Click to Edit 09/03/20 10:26 Patient Status [ADT] Routine 09/03/20 12:36 Acetaminophen/HYDROcodone [[place] 325-5 MG] 1 tab PO Q4H PRN 09/03/20 18:34 guaiFENesin [Robitussin] 100 mg PO Q6H PRN 09/04/20 09:30 PROCALCITONIN [REF] DAILY 09/05/20 07:00 C-REACTIVE PROTEIN [REF] DAILY CBC W/O DIFF,HEMOGRAM [HEME] DAILY COMPREHENSIVE METABOLIC PN,CMP [CHEM] DAILY D-DIMER QUANTITATIVE [COAG] DAILY FERRITIN [CHEM] DAILY INR,PT,PROTHROMBIN TIME [COAG] DAILY LACTATE DEHYDROGENASE,LDH [CHEM] DAILY MAGNESIUM [CHEM] DAILY PHOSPHORUS [CHEM] DAILY TROPONIN I [CHEM] DAILY 09/05/20 09:30 PROCALCITONIN [REF] DAILY 09/06/20 07:00 C-REACTIVE PROTEIN [REF] DAILY CBC W/O DIFF,HEMOGRAM [HEME] DAILY COMPREHENSIVE METABOLIC PN,CMP [CHEM] DAILY D-DIMER QUANTITATIVE [COAG] DAILY FERRITIN [CHEM] DAILY INR,PT,PROTHROMBIN TIME [COAG] DAILY LACTATE DEHYDROGENASE,LDH [CHEM] DAILY MAGNESIUM [CHEM] DAILY PHOSPHORUS [CHEM] DAILY TROPONIN I [CHEM] DAILY 09/06/20 09:30 PROCALCITONIN [REF] DAILY 09/07/20 07:00 C-REACTIVE PROTEIN [REF] DAILY - Plan Plan:: #COVID-19 pneumonia #Acute respiratory failure with hypoxia due to above Patient diagnosed of COVID-19 on 08/20/2020 He has been recuperating at home but symptom got worse He was hypoxic requiring supplemental oxygen CT chest shows peripheral groundglass opacity Continue supplemental oxygen and wean off as able Procalcitonin was elevated Continue ceftriaxone and azithromycin Patient would not benefit from remdesivir given detailed diagnosis. Ordered 2 units of convalescent plasma yesterday but this was not revealed as ordered. Continue dexamethasone to complete 10 days course Daily COVID-19 labs #Hypertension BP within acceptable limits Continue home medication Monitor BP closely #Depression/ Continue Zoloft and alprazolam #Obesity Advised to lose weight #Physical debility Physical therapy #Cardiac diet #Full code
[2020-09-04] MEDS: Sodium Chloride 0.9% 10 ML Syringe FLUSH PRN ×2 (11:59→20:04)
[2020-09-04] MEDS: cefTRIAXone 1 GM in Sodium Chloride 0.9% 50 ML IV SCH (11:59)
[2020-09-04] MEDS: Azithromycin 500 MG in Sodium Chloride 0.9% 250 ML IV SCH (12:40)
[2020-09-04] MEDS: Sertraline 50 MG Tab PO SCH (20:02)
[2020-09-04] MEDS: guaiFENesin 100 MG/5 ML Soln 5 ML UD Cup PO PRN (22:03)
[2020-09-04] MEDS: diphenhydrAMINE 25 MG Tab PO PRN (22:05)
[2020-09-05 07:24] LABS: ANION GAP 9.9 mEq/L (7-13); CHLORIDE,CL 99 mmol/L (98-107); SODIUM,NA 137 mmol/L (136-145)
[2020-09-05] MEDS: Furosemide 40 MG/4 ML VIAL IV SCH ×2 (08:17→15:41)
[2020-09-05] MEDS: Dexamethasone 4 MG Tab PO SCH (08:18)
[2020-09-05] MEDS: Enoxaparin 40 MG/0.4 ML Syringe SUBCUT SCH (08:19)
[2020-09-05] MEDS: Benzonatate 100 MG Cap PO SCH ×3 (08:20→20:04)
[2020-09-05] MEDS: Acetaminophen 325 MG Tab PO PRN (08:20)
--- NOTE | 2020-09-05 09:56 | PCM.PN ---
- General Info Date of Service: 09/05/20 Admission Dx/Problem (Free Text): Admission Diagnosis/Problem Admission Diagnosis/Problem COVID-19 pneumonia Subjective Update: Stewart is a 35-year-old male with past medical history significant for hypertension, COVID-19 infection diagnosed on 08/20/2020. Patient was brought to the ED via EMS for increasing shortness of breath. He was subsequently admitted for acute respiratory failure with hypoxia due to COVID-[address] chest showed peripheral groundglass opacities. Today patient was seen and examined. Patient doing okay today. He looks a lot better. He is still requiring high supplemental oxygen at 5 L. Patient however endorses feeling better. Labs especially remain okay. Functional Status: Reports: Pain Controlled - Review of Systems General: Reports: No Symptoms HEENT: Reports: No Symptoms Pulmonary: Reports: No Symptoms Cardiovascular: Reports: No Symptoms Gastrointestinal: Reports: No Symptoms Genitourinary: Reports: No Symptoms Musculoskeletal: Reports: No Symptoms Skin: Reports: No Symptoms Neurological: Reports: No Symptoms Psychiatric: Reports: No Symptoms - Patient Data Vitals - Most Recent: Last Vital Signs Temp 96.2 F L 09/05/20 08:00 Pulse 73 09/05/20 08:00 Resp 18 09/05/20 08:00 BP 120/82 09/05/20 08:00 Pulse Ox 93 L 09/05/20 08:00 Weight - Most Recent: 261 lb 9.6 oz I&O - Last 24 Hours: Intake & Output 09/04/20 09/05/20 09/05/20 22:59 06:59 14:59 Intake Total 670 500 Balance 670 500 Lab Results Last 24 Hours: Laboratory Results - last 24 hr 09/05/20 09/05/20 09/05/20 Range/Units 06:41 06:41 06:41 WBC 10.4 H (5.0-10.0) 10^3/uL RBC 5.16 (4.6-6.2) 10^6/uL Hgb 15.0 (14.0-18.0) g/dL Hct 43.1 (40.0-54.0) % MCV 83.5 (80-100) fL MCH 29.1 (27.0-34.0) pg MCHC 34.8 (33.0-35.0) g/dL Plt Count 302 (150-450) 10^3/uL PT 11.0 (9.0-12.0) SEC INR 1.2 (0.9-1.2) D-Dimer, Quantitative < 100 (0-400) ng/mL Sodium 137 (136-145) mmol/L Potassium 3.9 (3.5-5.1) mmol/L Chloride 99 (98-107) mmol/L Carbon Dioxide 32 (21-32) mmol/L Anion Gap 9.9 (7-13) mEq/L BUN 21 H (7-18) mg/dL Creatinine 0.95 (0.70-1.30) mg/dL Est Cr Clr Drug Dosing 95.12 mL/min Estimated GFR (MDRD) > 60 BUN/Creatinine Ratio 22.1 (No establ ref range) Glucose 110 H (74-99) mg/dL Calcium 8.8 (8.5-10.1) mg/dL Phosphorus 4.0 (2.6-4.7) mg/dL Magnesium 2.1 (1.8-2.4) mg/dL Ferritin (26-388) mg/mL Total Bilirubin 0.7 (0.2-1.0) mg/dL AST 34 (15-37) U/L ALT 83 H (16-63) U/L Alkaline Phosphatase 69 (46-116) U/L Lactate Dehydrogenase 204 (85-227) U/L Troponin I < 0.017 (0.000-0.056) ng/mL C-Reactive Protein 2.2 H (0.0-0.9) mg/dL Total Protein 6.8 (6.4-8.2) g/dL Albumin 2.7 L (3.4-5.0) g/dL Globulin 4.1 Albumin/Globulin Ratio 0.66 09/05/ Range/Units 06:41 WBC (5.0-10.0) 10^3/uL RBC (4.6-6.2) 10^6/uL Hgb (14.0-18.0) g/dL Hct (40.0-54.0) % MCV (80-100) fL MCH (27.0-34.0) pg MCHC (33.0-35.0) g/dL Plt Count (150-450) 10^3/uL PT (9.0-12.0) SEC INR (0.9-1.2) D-Dimer, Quantitative (0-400) ng/mL Sodium (136-145) mmol/L Potassium (3.5-5.1) mmol/L Chloride (98-107) mmol/L Carbon Dioxide (21-32) mmol/L Anion Gap (7-13) mEq/L BUN (7-18) mg/dL Creatinine (0.70-1.30) mg/dL Est Cr Clr Drug Dosing mL/min Estimated GFR (MDRD) BUN/Creatinine Ratio (No establ ref range) Glucose (74-99) mg/dL Calcium (8.5-10.1) mg/dL Phosphorus (2.6-4.7) mg/dL Magnesium (1.8-2.4) mg/dL Ferritin 1406 H (26-388) mg/mL Total Bilirubin (0.2-1.0) mg/dL AST (15-37) U/L ALT (16-63) U/L Alkaline Phosphatase (46-116) U/L Lactate Dehydrogenase (85-227) U/L Troponin I (0.000-0.056) ng/mL C-Reactive Protein (0.0-0.9) mg/dL Total Protein (6.4-8.2) g/dL Albumin (3.4-5.0) g/dL Globulin Albumin/Globulin Ratio [place] Results Last 24 Hours: Microbiology 09/01/20 08:02 Aerobic Blood Culture - Preliminary Blood - Arm, Left NO GROWTH AFTER 4 DAYS Anaerobic Blood Culture - Preliminary NO GROWTH AFTER 4 DAYS Med Orders - Current: Current Medications Acetaminophen (Tylenol) 650 mg PO Q4H PRN PRN Reason: Pain (Mild 1-3)/fever Last Admin: 09/05/20 08:20 Dose: 650 mg Documented by: Hydrocodone Bitart/Acetaminophen ([place] 325-5 Mg) 1 tab PO Q4H PRN PRN Reason: Pain Last Admin: 09/04/20 20:02 Dose: 1 tab Documented by: Albuterol (Proventil Hfa) 0 gm INH Q4H PRN PRN Reason: Shortness of Breath Last Admin: 09/03/20 18:33 Dose: 2 puff Documented by: Alprazolam (Xanax) 0.5 mg PO BID PRN PRN Reason: Anxiety Last Admin: 09/04/20 22:02 Dose: 0.5 mg Documented by: Benzonatate (Tessalon Perles) 200 mg PO TID [facility] Last Admin: 09/05/20 08:20 Dose: 200 mg Documented by: Dexamethasone (Dexamethasone) 6 mg PO DAILY [facility] Stop: 09/07/20 09:01 Last Admin: 09/05/20 08:18 Dose: 6 mg Documented by: Diphenhydramine HCl (Benadryl) 25 mg PO BEDTIME PRN PRN Reason: Insomnia Last Admin: 09/04/20 22:05 Dose: 25 mg Documented by: Enoxaparin Sodium (Lovenox) 40 mg SUBCUT DAILY [facility] Last Admin: 09/05/20 08:19 Dose: 40 mg Documented by: Furosemide (Lasix) 40 mg IV BIDDIURETIC [facility] Last Admin: 09/05/20 08:17 Dose: 40 mg Documented by: Guaifenesin (Robitussin) 100 mg PO Q6H PRN PRN Reason: Cough Last Admin: 09/04/20 22:03 Dose: 100 mg Documented by: Ceftriaxone Sodium 1 gm/ (Sodium Chloride) 50 mls @ 100 mls/hr IV Q24H [facility] Last Infusion: 09/04/20 12:40 Dose: Infused Documented by: Azithromycin 500 mg/ Sodium (Chloride) 250 mls @ 250 mls/hr IV Q24H [facility] Last Infusion: 09/04/20 14:15 Dose: Infused Documented by: Ondansetron HCl (Zofran) 4 mg IVPUSH Q6H PRN PRN Reason: Nausea/Vomiting Sertraline HCl (Zoloft) 50 mg PO BEDTIME [facility] Last Admin: 09/04/20 20:02 Dose: 50 mg Documented by: Sodium Chloride (Saline Flush) 10 ml FLUSH ASDIRECTED PRN PRN Reason: IV Use Last Admin: 09/04/20 20:04 Dose: 10 ml Documented by: Discontinued Medications Dexamethasone (Decadron) 6 mg IVPUSH ONETIME ONE Stop: 09/01/20 08:34 Last Admin: 09/01/20 08:51 Dose: 6 mg Documented by: Azithromycin 500 mg/ Sodium (Chloride) 250 mls @ 250 mls/hr IV ONETIME ONE Stop: 09/01/20 11:26 Last Admin: 09/01/20 10:38 Dose: 250 mls/hr Documented by: Ceftriaxone Sodium 1 gm/ (Sodium Chloride) 50 mls @ 100 mls/hr IV ONETIME ONE Stop: 09/01/20 10:56 Last Admin: 09/01/20 12:39 Dose: 100 mls/hr Documented by: - Exam Quality Assessment: Supplemental Oxygen, DVT Prophylaxis General: Alert, Oriented HEENT: Pupils Equal, Pupils Reactive, EOMI, Mucous Membr. Moist/[place] Neck: Supple Lungs: Clear to Auscultation, Normal Respiratory Effort Cardiovascular: Regular Rate, Regular Rhythm GI/Abdominal Exam: Normal Bowel Sounds, Soft, Non-Tender, No Organomegaly, No Distention, No Abnormal Bruit, No Mass, Pelvis Stable (Male) Exam: No Hernia, Normal Inspection, Normal Prostate, Circumcised Back Exam: Normal Inspection, Full Range of Motion Extremities: Normal Inspection, Normal Range of Motion, Non-Tender, No Pedal Edema, Normal Capillary Refill Skin: Warm, Dry, Intact Wound/Incisions: Healing Well Neurological: No New Focal Deficit Psy/Mental Status: Alert, Normal Affect, Normal Mood Sepsis Event Note - Evaluation Sepsis Screening Result: No Definite Risk - Focused Exam Vital Signs: Vital Signs Temp Pulse Resp BP Pulse Ox 09/05/20 08:00 96.2 F L 73 18 120/82 93 L 09/04/20 23:40 98.1 F 81 18 113/81 95 - Problem List & Annotations (1) Acute respiratory failure with hypoxia SNOMED Code(s): 26185276, 218056633 Code(s): J96.01 - ACUTE RESPIRATORY FAILURE WITH HYPOXIA Status: Acute Current Visit: Yes (2) Hypertension SNOMED Code(s): 56256004 Code(s): I10 - ESSENTIAL (PRIMARY) HYPERTENSION Status: Acute Current Visit: Yes (3) Depression SNOMED Code(s): 83536112 Code(s): F32.9 - MAJOR DEPRESSIVE DISORDER, SINGLE EPISODE, UNSPECIFIED Status: Acute Current Visit: Yes - Problem List Review Problem List Initiated/Reviewed/Updated: Yes - My Orders Last 24 Hours: My Active Orders 09/05/20 06:41 PROCALCITONIN [REF] DAILY 09/05/20 09:46 Communication Order [RC] DAILY 09/06/20 07:00 C-REACTIVE PROTEIN [REF] DAILY CBC W/O DIFF,HEMOGRAM [HEME] DAILY COMPREHENSIVE METABOLIC PN,CMP [CHEM] DAILY D-DIMER QUANTITATIVE [COAG] DAILY FERRITIN [CHEM] DAILY INR,PT,PROTHROMBIN TIME [COAG] DAILY LACTATE DEHYDROGENASE,LDH [CHEM] DAILY MAGNESIUM [CHEM] DAILY PHOSPHORUS [CHEM] DAILY TROPONIN I [CHEM] DAILY 09/06/20 09:30 PROCALCITONIN [REF] DAILY 09/07/20 07:00 C-REACTIVE PROTEIN [REF] DAILY - Plan Plan:: #COVID-19 pneumonia #Acute respiratory failure with hypoxia due to above Patient diagnosed of COVID-19 on 08/20/2020 He has been recuperating at home but symptom got worse He was hypoxic requiring supplemental oxygen CT chest shows peripheral groundglass opacity Continue supplemental oxygen and wean off as able Continue ceftriaxone and azithromycin Patient would not benefit from remdesivir given detailed diagnosis Status post 2 units of convalescent plasma Continue dexamethasone to complete 10 days course Daily COVID-19 labs #Hypertension BP within acceptable limits Continue home medication Monitor BP closely #Depression/anxiety Continue Zoloft and alprazolam #Obesity Advised to lose weight #Physical debility Physical therapy #Cardiac diet #Full code
[2020-09-05] MEDS: cefTRIAXone 1 GM in Sodium Chloride 0.9% 50 ML IV SCH (12:12)
[2020-09-05] MEDS: Acetaminophen/HYDROcodone 325-5 MG Tab PO PRN ×2 (12:15→20:04)
[2020-09-05] MEDS: Azithromycin 500 MG in Sodium Chloride 0.9% 250 ML IV SCH (12:53)
[2020-09-05] MEDS: Sertraline 50 MG Tab PO SCH (20:03)
[2020-09-05] MEDS: ALPRAZolam 0.5 MG Tab PO PRN (21:50)
[2020-09-05] MEDS: diphenhydrAMINE 25 MG Tab PO PRN (21:50)
[2020-09-05] MEDS: guaiFENesin 100 MG/5 ML Soln 5 ML UD Cup PO PRN (21:50)
[2020-09-06 07:11] LABS: ANION GAP 8.8 mEq/L (7-13); CHLORIDE,CL 98 mmol/L (98-107); SODIUM,NA 136 mmol/L (136-145)
[2020-09-06] MEDS: Enoxaparin 40 MG/0.4 ML Syringe SUBCUT SCH (09:02)
[2020-09-06] MEDS: Sodium Chloride 0.9% 10 ML Syringe FLUSH PRN (09:03)
[2020-09-06] MEDS: Dexamethasone 4 MG Tab PO SCH (09:04)
[2020-09-06] MEDS: Furosemide 40 MG/4 ML VIAL IV SCH ×3 (09:05→13:36)
[2020-09-06] MEDS: Acetaminophen/HYDROcodone 325-5 MG Tab PO PRN (09:05)
[2020-09-06] MEDS: Benzonatate 100 MG Cap PO SCH ×2 (09:05→13:55)
--- NOTE | 2020-09-06 10:55 | PCM.DCSUM1 ---
Discharge Summary - Hospital Course Free Text/Narrative:: Stewart is a 35-year-old male with past medical history significant for hypertension, COVID-19 infection diagnosed on 08/20/2020. Patient was brought to the ED via EMS for increasing shortness of breath. He was subsequently admitted for acute respiratory failure with hypoxia due to COVID-[address] chest showed peripheral groundglass opacities. Patient was consented to continue for remdesivir given dental diagnosis. He however received convalescent plasma. He also received IV antibiotics. Patient responded to treatment. His oxygen requirement improved was still was unable to been weaned off oxygen. Patient will require supplemental oxygen via nasal cannula 3 L/min continuous and 3 L/min with activity due to acute respiratory failure as a result of Covid pneumonia. Patient to follow-up with PCP. Diagnosis: Stroke: No - Discharge Data Discharge Date: 09/06/20 Discharge Disposition: Home, Self-Care 01 Condition: Good - Referral to Home Health Primary Care Physician: PCP Unobtainable - Discharge Diagnosis/Problem(s) (1) Acute respiratory failure with hypoxia SNOMED Code(s): 77264494, 303912355 ICD Code: J96.01 - ACUTE RESPIRATORY FAILURE WITH HYPOXIA Status: Acute Current Visit: Yes (2) Hypertension SNOMED Code(s): 63665784 ICD Code: I10 - ESSENTIAL (PRIMARY) HYPERTENSION Status: Acute Current Visit: Yes (3) Depression SNOMED Code(s): 96105067 ICD Code: F32.9 - MAJOR DEPRESSIVE DISORDER, SINGLE EPISODE, UNSPECIFIED Status: Acute Current Visit: Yes - Patient Instructions Diet: Heart Healthy Diet Activity: As Tolerated Showering/Bathing: May Shower Notify Provider of: Fever, Increased Pain, Swelling and Redness, Nausea and/or Vomiting - Discharge Plan *PRESCRIPTION DRUG MONITORING PROGRAM REVIEWED*: Not Applicable *COPY OF PRESCRIPTION DRUG MONITORING REPORT IN PATIENT DANIELLE: Not Applicable Prescriptions/Med Rec: ALPRAZolam 1 mg PO BID PRN 30 Days #15 tablet PRN Reason: Anxiety Aspirin 325 mg PO DAILY #28 tablet Furosemide [Lasix] 40 mg PO BID 30 Days #60 tablet levoFLOXacin [Levaquin] 750 mg PO Q24H #7 tab Albuterol [Proventil HFA] 0 gm INH Q4H PRN #1 inhaler PRN Reason: Shortness Of Breath guaiFENesin [Robitussin] 100 mg PO Q6H PRN #1 cup PRN Reason: Cough Home Medications: Home Meds Lisinopril/Hydrochlorothiazide [Zestoretic 10-12.5 MG] 1 tab PO DAILY 02/02/15 [History] Sertraline [Zoloft] 50 mg PO BEDTIME 12/18/15 [History] oxyCODONE HCl/Acetaminophen [oxyCODONE-Acetaminophen 5-325] 1 - 2 tab PO Q4H PRN 12/20/15 [History] dexAMETHasone [Dexamethasone] 6 mg PO DAILY 09/01/20 [History] ALPRAZolam 1 mg PO BID PRN 30 Days #15 tablet 09/06/20 [Rx] Albuterol [Proventil HFA] 0 gm INH Q4H PRN #1 inhaler 09/06/20 [Rx] Aspirin 325 mg PO DAILY #28 tablet 09/06/20 [Rx] Benzonatate 200 mg PO TID #15 09/06/20 [Rx] Furosemide [Lasix] 40 mg PO BID 30 Days #60 tablet 09/06/20 [Rx] guaiFENesin [Robitussin] 100 mg PO Q6H PRN #1 cup 09/06/20 [Rx] levoFLOXacin [Levaquin] 750 mg PO Q24H #7 tab 09/06/20 [Rx] Oxygen Therapy Mode: Nasal Cannula Patient Handouts: COVID-19 Frequently Asked Questions, COVID-19: How to Protect Yourself and Others - CDC, Community-Acquired Pneumonia, Adult, [id number], Prevent the Spread of COVID-19 if You Are Sick - [facility] Referrals: Tara Hawk NP [Ordering Only Provider] - - Discharge Summary/Plan Comment DC Time >30 min.: Yes - General Info Date of Service: 09/06/20 Admission Dx/Problem (Free Text: Admission Diagnosis/Problem Admission Diagnosis/Problem acute respiratory failure with hypoxia due to COVID-19 pneumonia Subjective Update: Patient doing okay today. Has no new complaints. Functional Status: Reports: Pain Controlled - Review of Systems General: Reports: No Symptoms HEENT: Reports: No Symptoms Pulmonary: Reports: No Symptoms Cardiovascular: Reports: No Symptoms Gastrointestinal: Reports: No Symptoms Genitourinary: Reports: No Symptoms Musculoskeletal: Reports: No Symptoms Skin: Reports: No Symptoms Neurological: Reports: No Symptoms Psychiatric: Reports: No Symptoms - Patient Data Vitals - Most Recent: Last Vital Signs Temp 98.8 F 09/06/20 08:00 Pulse 88 09/06/20 08:00 Resp 20 09/06/20 08:00 BP 102/50 L 09/06/20 08:00 Pulse Ox 95 09/06/20 08:00 Weight - Most Recent: 261 lb 9.6 oz I&O - Last 24 hours: Intake & Output 09/05/20 09/06/20 09/06/20 22:59 06:59 14:59 Intake Total 400 Balance 400 Lab Results - Last 24 hrs: Laboratory Results - last 24 hr 09/06/20 09/06/20 09/06/20 Range/Units 06:22 06:22 06:22 WBC 10.9 H (5.0-10.0) 10^3/uL RBC 5.10 (4.6-6.2) 10^6/uL Hgb 14.7 (14.0-18.0) g/dL Hct 42.4 (40.0-54.0) % MCV 83.1 (80-100) fL MCH 28.8 (27.0-34.0) pg MCHC 34.7 (33.0-35.0) g/dL Plt Count 326 (150-450) 10^3/uL PT 11.5 (9.0-12.0) SEC INR 1.2 (0.9-1.2) D-Dimer, Quantitative < 100 (0-400) ng/mL Sodium 136 (136-145) mmol/L Potassium 3.8 (3.5-5.1) mmol/L Chloride 98 (98-107) mmol/L Carbon Dioxide 33 H (21-32) mmol/L Anion Gap 8.8 (7-13) mEq/L BUN 18 (7-18) mg/dL Creatinine 0.94 (0.70-1.30) mg/dL Est Cr Clr Drug Dosing 96.14 mL/min Estimated GFR (MDRD) > 60 BUN/Creatinine Ratio 19.1 (No establ ref range) Glucose 117 H (74-99) mg/dL Calcium 8.5 (8.5-10.1) mg/dL Phosphorus 4.1 (2.6-4.7) mg/dL Magnesium 2.0 (1.8-2.4) mg/dL Ferritin (26-388) mg/mL Total Bilirubin 0.6 (0.2-1.0) mg/dL AST 29 (15-37) U/L ALT 85 H (16-63) U/L Alkaline Phosphatase 67 (46-116) U/L Lactate Dehydrogenase 178 (85-227) U/L Troponin I < 0.017 (0.000-0.056) ng/mL C-Reactive Protein 1.1 H (0.0-0.9) mg/dL Total Protein 6.7 (6.4-8.2) g/dL Albumin 2.6 L (3.4-5.0) g/dL Globulin 4.1 Albumin/Globulin Ratio 0.63 09/06/ Range/Units 06:22 WBC (5.0-10.0) 10^3/uL RBC (4.6-6.2) 10^6/uL Hgb (14.0-18.0) g/dL Hct (40.0-54.0) % MCV (80-100) fL MCH (27.0-34.0) pg MCHC (33.0-35.0) g/dL Plt Count (150-450) 10^3/uL PT (9.0-12.0) SEC INR (0.9-1.2) D-Dimer, Quantitative (0-400) ng/mL Sodium (136-145) mmol/L Potassium (3.5-5.1) mmol/L Chloride (98-107) mmol/L Carbon Dioxide (21-32) mmol/L Anion Gap (7-13) mEq/L BUN (7-18) mg/dL Creatinine (0.70-1.30) mg/dL Est Cr Clr Drug Dosing mL/min Estimated GFR (MDRD) BUN/Creatinine Ratio (No establ ref range) Glucose (74-99) mg/dL Calcium (8.5-10.1) mg/dL Phosphorus (2.6-4.7) mg/dL Magnesium (1.8-2.4) mg/dL Ferritin 1332 H (26-388) mg/mL Total Bilirubin (0.2-1.0) mg/dL AST (15-37) U/L ALT (16-63) U/L Alkaline Phosphatase (46-116) U/L Lactate Dehydrogenase (85-227) U/L Troponin I (0.000-0.056) ng/mL C-Reactive Protein (0.0-0.9) mg/dL Total Protein (6.4-8.2) g/dL Albumin (3.4-5.0) g/dL Globulin Albumin/Globulin Ratio LIBRADO Results - Last 24 hrs: Microbiology 09/01/20 08:02 Aerobic Blood Culture - Final Blood - Arm, Left NO GROWTH AFTER 5 DAYS Anaerobic Blood Culture - Final NO GROWTH AFTER 5 DAYS Med Orders - Current: Current Medications Acetaminophen (Tylenol) 650 mg PO Q4H PRN PRN Reason: Pain (Mild 1-3)/fever Last Admin: 09/05/20 08:20 Dose: 650 mg Documented by: Hydrocodone Bitart/Acetaminophen ([place] 325-5 Mg) 1 tab PO Q4H PRN PRN Reason: Pain Last Admin: 09/06/20 09:05 Dose: 1 tab Documented by: Albuterol (Proventil Hfa) 0 gm INH Q4H PRN PRN Reason: Shortness of Breath Last Admin: 09/03/20 18:33 Dose: 2 puff Documented by: Alprazolam (Xanax) 0.5 mg PO BID PRN PRN Reason: Anxiety Last Admin: 09/05/20 21:50 Dose: 0.5 mg Documented by: Benzonatate (Tessalon Perles) [address] [facility] Last Admin: 09/06/20 09:05 Dose: 200 mg Documented by: Dexamethasone (Dexamethasone) [address] [facility] Stop: 09/07/20 09:01 Last Admin: 09/06/20 09:04 Dose: 6 mg Documented by: Diphenhydramine HCl (Benadryl) 25 mg PO BEDTIME PRN PRN Reason: Insomnia Last Admin: 09/05/20 21:50 Dose: 25 mg Documented by: Enoxaparin Sodium (Lovenox) [address] [facility] Last Admin: 09/06/20 09:02 Dose: 40 mg Documented by: Furosemide (Lasix) [address] [facility] Last Admin: 09/06/20 09:37 Dose: Not Given Documented by: Guaifenesin (Robitussin) 100 mg PO Q6H PRN PRN Reason: Cough Last Admin: 09/05/20 21:50 Dose: 100 mg Documented by: Ceftriaxone Sodium 1 gm/ (Sodium Chloride) 50 mls @ 100 mls/hr IV Q24H [facility] Last Admin: 09/05/20 12:12 Dose: 100 mls/hr Documented by: Azithromycin 500 mg/ Sodium (Chloride) 250 mls @ 250 mls/hr IV Q24H [facility] Last Admin: 09/05/20 12:53 Dose: 150 mls/hr Documented by: Ondansetron HCl (Zofran) 4 mg IVPUSH Q6H PRN PRN Reason: Nausea/Vomiting Sertraline HCl (Zoloft) [address] [facility] Last Admin: 09/05/20 20:03 Dose: 50 mg Documented by: Sodium Chloride (Saline Flush) 10 ml FLUSH ASDIRECTED PRN PRN Reason: IV Use Last Admin: 09/06/20 09:03 Dose: 10 ml Documented by: Discontinued Medications Dexamethasone (Decadron) 6 mg IVPUSH ONETIME ONE Stop: 09/01/20 08:34 Last Admin: 09/01/20 08:51 Dose: 6 mg Documented by: Azithromycin 500 mg/ Sodium (Chloride) 250 mls @ 250 mls/hr IV ONETIME ONE Stop: 09/01/20 11:26 Last Admin: 09/01/20 10:38 Dose: 250 mls/hr Documented by: Ceftriaxone Sodium 1 gm/ (Sodium Chloride) 50 mls @ 100 mls/hr IV ONETIME ONE Stop: 09/01/20 10:56 Last Admin: 09/01/20 12:39 Dose: 100 mls/hr Documented by: - Exam Quality Assessment: Reports: Supplemental Oxygen, DVT Prophylaxis General: Reports: Alert, Oriented HEENT: Reports: Pupils Equal, Pupils Reactive, EOMI, Mucous Membr. Moist/[place] Neck: Reports: Supple Lungs: Reports: Clear to Auscultation, Normal Respiratory Effort Cardiovascular: Reports: Regular Rate, Regular Rhythm GI/Abdominal Exam: Normal Bowel Sounds, Soft, Non-Tender, No Organomegaly, No Distention, No Abnormal Bruit, No Mass, Pelvis Stable (Male) Exam: No Hernia, Normal Inspection, Normal Prostate, Circumcised Rectal (Males) Exam: Normal Exam, Normal Rectal Tone, Prostate Normal Back Exam: Reports: Normal Inspection, Full Range of Motion Extremities: Normal Inspection, Normal Range of Motion, Non-Tender, No Pedal Edema, Normal Capillary Refill Skin: Reports: Warm, Dry, Intact Wound/Incisions: Reports: Healing Well Neurological: Reports: No New Focal Deficit Psy/Mental Status: Reports: Alert, Normal Affect, Normal Mood
[2020-09-06] MEDS: Azithromycin 500 MG in Sodium Chloride 0.9% 250 ML IV SCH (11:50)
[2020-09-06] MEDS: cefTRIAXone 1 GM in Sodium Chloride 0.9% 50 ML IV SCH (11:50)
[2020-09-06 13:16] VITALS: BP 124/64; PULSE 81
== END 2020-09-06 14:58 | disposition home or self-care (01) | DRG 177 ==
LOC: DL.ED 07:45 → DL.MS 10:28 → OBSVTOIN 09-03 10:26
PROVIDERS: ADMIT Student in an Organized Health Care Education/Training Program; ATTEND Student in an Organized Health Care Education/Training Program
PROC: 30233L1 Transfusion of Nonautologous Fresh Plasma into Peripheral Vein, Percutaneous Approach (ICD-10-PCS; principal; 2020-09-03)
PROC: XW13325 Transfusion of Convalescent Plasma (Nonautologous) into Peripheral Vein, Percutaneous Approach, New Technology Group 5 (ICD-10-PCS; 2020-09-03)
PROC: 8E0ZXY6 Isolation (ICD-10-PCS; 2020-09-03)
DX: U07.1 COVID-19 (principal); J96.01 Acute respiratory failure with hypoxia; J12.89 Other viral pneumonia; I10 Essential (primary) hypertension; K21.9 Gastro-esophageal reflux disease without esophagitis; R51.9 Headache, unspecified; G89.29 Other chronic pain; F32.9 Major depressive disorder, single episode, unspecified; E66.9 Obesity, unspecified; Z90.49 Acquired absence of other specified parts of digestive tract; Z90.89 Acquired absence of other organs; Z88.2 Allergy status to sulfonamides; Z79.899 Other long term (current) drug therapy; Z98.49 Cataract extraction status, unspecified eye; Z98.890 Other specified postprocedural states; Z68.32 Body mass index [BMI] 32.0-32.9, adult
CPT/HCPCS: 36415; 36430; 71045; 71250; 80053; 82728; 82962; 83605; 83615; 83735; 84100; 84145; 84484; 85025; 85027; 85379; 85610; 86140; 86900; 86901; 87040; 96365; 96366; 96367; 96372; 96374; 96375; 96376; 99284; 99285-25; A9270-GY; G0378; J0456; J0696; J1100; J1650; J1940; J7050; J8540; P9017

== ENCOUNTER 2022-11-20 10:51 | Inpatient (IN) | payer OTHER ==
[2022-11-20] MEDS ORDERED: Sodium Chloride 0.9% 1,000 ML IV ONE ×2 (11:38→13:38)
[2022-11-20] MEDS ORDERED: Ondansetron 4 MG/2 ML SDV IVPUSH ONE (11:38)
[2022-11-20 12:19] LABS: CORONAVIRUS COVID-19 NAA NEGATIVE (NEGATIVE); RESPIRATORY SYNCYTIAL VIR NAA NEGATIVE (NEGATIVE)
[2022-11-20] MEDS ORDERED: Iopamidol 755 Mg/ML 100 ML Bottle IVPUSH ONE (13:00)
[2022-11-20] MEDS ORDERED: Potassium Chloride 20 MEQ in Premix Bag 1 BAG IV ONE (13:46)
[2022-11-20] MEDS: Sodium Chloride 0.9% 10 ML Syringe FLUSH PRN (14:36)
[2022-11-20] MEDS ORDERED: Albuterol/Ipratropium 3.0-0.5 MG/3 ML Neb Soln NEB PRN (15:50)
[2022-11-20] MEDS ORDERED: Ondansetron 4 MG/2 ML SDV IVPUSH PRN (15:50)
[2022-11-20] MEDS ORDERED: Morphine 2 MG/ML SYRINGE IVPUSH PRN (15:50)
[2022-11-20] MEDS ORDERED: traMADol 50 MG Tab PO PRN (15:55)
[2022-11-20] MEDS ORDERED: hydrALAZINE 20 MG/ML SDV IVPUSH PRN (15:59)
[2022-11-20] MEDS ORDERED: Sodium Chloride 0.9% 100 ML IV SCH (16:00)
[2022-11-20] MEDS ORDERED: Albuterol 6.7 GM Inhaler INH PRN (16:44)
[2022-11-20] MEDS ORDERED: guaiFENesin 100 MG/5 ML Soln 5 ML UD Cup PO PRN (16:44)
[2022-11-20] MEDS: Acetaminophen 325 MG Tab PO PRN (17:15)
[2022-11-20] MEDS: cefTRIAXone 2 GM Vial IVPUSH SCH (17:16)
[2022-11-20] MEDS: Azithromycin 500 MG in Sodium Chloride 0.9% 250 ML IV SCH (17:16)
[2022-11-20] MEDS: Sodium Chloride 0.45% 1,000 ML IV SCH (17:16)
[2022-11-20] MEDS: oxyCODONE 5 MG Tab PO PRN (18:45)
[2022-11-20] MEDS: Sertraline 50 MG Tab PO SCH (21:53)
[2022-11-20] MEDS: Gabapentin 300 MG Cap PO SCH (21:53)
[2022-11-20] MEDS: Melatonin 3 MG Tab PO PRN (21:53)
[2022-11-20] MEDS: Pantoprazole 40 MG Tab.CR PO SCH (21:53)
[2022-11-21] MEDS: Acetaminophen 325 MG Tab PO PRN ×3 (00:01→17:21)
[2022-11-21] MEDS: oxyCODONE 5 MG Tab PO PRN ×2 (06:36→17:27)
[2022-11-21 07:07] LABS: ANION GAP 12.3 mEq/L (7-13)
[2022-11-21] MEDS: Sodium Chloride 0.45% 1,000 ML IV SCH ×2 (07:59→21:38)
[2022-11-21] MEDS ORDERED: Lisinopril 10 MG Tab PO SCH (09:00)
[2022-11-21] MEDS: Aspirin 325 MG Tab PO SCH (09:44)
[2022-11-21] MEDS: Sodium Chloride 0.9% 10 ML Syringe FLUSH PRN ×2 (09:45→21:32)
[2022-11-21] MEDS: Naproxen 250 MG Tab PO PRN ×2 (09:45→21:32)
[2022-11-21] MEDS: Enoxaparin 40 MG/0.4 ML Syringe SUBCUT SCH (09:45)
[2022-11-21] MEDS ORDERED: Potassium Chloride 10 MEQ Tab.ER PO ONE (12:30)
[2022-11-21] MEDS: cefTRIAXone 2 GM Vial IVPUSH SCH (16:38)
[2022-11-21] MEDS: Azithromycin 500 MG in Sodium Chloride 0.9% 250 ML IV SCH (16:39)
[2022-11-21] MEDS ORDERED: Potassium Chloride 10 MEQ Tab.ER ONE (17:53)
[2022-11-21] MEDS: Gabapentin 300 MG Cap PO SCH (21:26)
[2022-11-21] MEDS: Pantoprazole 40 MG Tab.CR PO SCH (21:26)
[2022-11-21] MEDS: Sertraline 50 MG Tab PO SCH (21:27)
[2022-11-21] MEDS: Melatonin 3 MG Tab PO PRN (21:27)
[2022-11-22] MEDS: Acetaminophen 325 MG Tab PO PRN ×3 (06:02→21:01)
[2022-11-22] MEDS: oxyCODONE 5 MG Tab PO PRN ×3 (06:03→23:51)
[2022-11-22 06:52] LABS: ANION GAP 11.5 mEq/L (7-13)
[2022-11-22] MEDS ORDERED: Sodium Chloride 0.9% 500 ML IV SCH (08:15)
[2022-11-22] MEDS: Naproxen 250 MG Tab PO PRN (09:37)
[2022-11-22] MEDS: Aspirin 325 MG Tab PO SCH (09:38)
[2022-11-22] MEDS: Enoxaparin 40 MG/0.4 ML Syringe SUBCUT SCH (09:38)
[2022-11-22] MEDS: Lisinopril 5 MG Tab PO SCH (09:38)
[2022-11-22] MEDS: Sodium Chloride 0.45% 1,000 ML IV SCH (11:15)
[2022-11-22] MEDS: cefTRIAXone 2 GM Vial IVPUSH SCH (16:15)
[2022-11-22] MEDS: Sodium Chloride 0.9% 10 ML Syringe FLUSH PRN ×2 (16:16→21:02)
[2022-11-22] MEDS: Azithromycin 500 MG in Sodium Chloride 0.9% 250 ML IV SCH (16:23)
[2022-11-22] MEDS: Sertraline 50 MG Tab PO SCH (21:01)
[2022-11-22] MEDS: Pantoprazole 40 MG Tab.CR PO SCH (21:01)
[2022-11-22] MEDS: Gabapentin 300 MG Cap PO SCH (21:01)
[2022-11-22] MEDS: Melatonin 3 MG Tab PO PRN (23:51)
[2022-11-23] MEDS: Sodium Chloride 0.45% 1,000 ML IV SCH (02:31)
[2022-11-23] MEDS: Acetaminophen 325 MG Tab PO PRN ×2 (05:37→13:32)
[2022-11-23 06:52] LABS: ANION GAP 10.5 mEq/L (7-13)
[2022-11-23] MEDS: Enoxaparin 40 MG/0.4 ML Syringe SUBCUT SCH (08:00)
[2022-11-23] MEDS: Lisinopril 5 MG Tab PO SCH (08:01)
[2022-11-23] MEDS: Aspirin 325 MG Tab PO SCH (08:02)
[2022-11-23 11:55] VITALS: BP 104/57; PULSE 69
== END 2022-11-23 14:40 | disposition home or self-care (01) | DRG 194 ==
LOC: DL.ED 10:51 → DL.MS 14:46
PROVIDERS: ADMIT Internal Medicine; ATTEND Internal Medicine
DX: J18.9 Pneumonia, unspecified organism (principal); E87.1 Hypo-osmolality and hyponatremia; I10 Essential (primary) hypertension; K76.0 Fatty (change of) liver, not elsewhere classified; E87.6 Hypokalemia; I95.9 Hypotension, unspecified; K21.9 Gastro-esophageal reflux disease without esophagitis; E66.9 Obesity, unspecified; F32.A Depression, unspecified; R19.7 Diarrhea, unspecified; N28.1 Cyst of kidney, acquired; Z20.822 Contact with and (suspected) exposure to COVID-19; D69.6 Thrombocytopenia, unspecified; R79.1 Abnormal coagulation profile; Z96.619 Presence of unspecified artificial shoulder joint; Z68.33 Body mass index [BMI] 33.0-33.9, adult; Z79.82 Long term (current) use of aspirin; Z79.1 Long term (current) use of non-steroidal anti-inflammatories (NSAID); Z79.2 Long term (current) use of antibiotics; Z86.16 Personal history of COVID-19; Z79.899 Other long term (current) drug therapy; Z88.2 Allergy status to sulfonamides; Z98.42 Cataract extraction status, left eye; Z98.41 Cataract extraction status, right eye; Z90.89 Acquired absence of other organs; Z98.890 Other specified postprocedural states; Z90.49 Acquired absence of other specified parts of digestive tract; Z87.891 Personal history of nicotine dependence
CPT/HCPCS: 0241U; 36415; 71045; 71260; 76705; 80053; 81001; 82140; 82150; 83605; 83690; 83735; 83880; 84145; 84443; 84484; 85025; 85379; 85610; 86140; 86803; 87040; 87045; 87046; 87081; 87340; 87430; 87493; 87641; 87899; 93005; 93010; 93970; 96361; 96365; 96375; 99285; 99285-25; A9270-GY; J0456; J0696; J1650; J2405; J3480; J3490; J7030; J7050; J7620-GY; Q9967

== ENCOUNTER 2023-09-30 15:23 | Emergency (ER) | payer OTHER ==
[2023-09-30] MEDS ORDERED: Diazepam 5 MG Tab PO ONE (15:24)
[2023-09-30] MEDS ORDERED: HYDROmorphone 1 MG/ML Syringe IM ONE (15:40)
[2023-09-30] MEDS ORDERED: Diazepam 2 MG Tab PO ONE (15:41)
[2023-09-30] MEDS ORDERED: predniSONE 20 MG Tab PO ONE (15:41)
[2023-09-30] MEDS ORDERED: Lidocaine 5% 700 MG Patch TOP ONE (15:42)
[2023-09-30 15:50] VITALS: BP 144/73; PULSE 82
[2023-09-30] MEDS ORDERED: Diazepam 5 MG Tab ONE (16:56)
== END 2023-09-30 17:06 | disposition home or self-care (01) ==
LOC: DL.ED 15:23
DX: M54.42 Lumbago with sciatica, left side (principal); I10 Essential (primary) hypertension; K21.9 Gastro-esophageal reflux disease without esophagitis; E66.9 Obesity, unspecified; Z68.35 Body mass index [BMI] 35.0-35.9, adult; Z86.16 Personal history of COVID-19; Z90.49 Acquired absence of other specified parts of digestive tract; Z88.2 Allergy status to sulfonamides; Z79.82 Long term (current) use of aspirin; Z79.899 Other long term (current) drug therapy
CPT/HCPCS: 96372; 99283; A9270; J1170; J7512

== ENCOUNTER 2024-10-25 09:08 | Inpatient (IN) | payer OTHER ==
[2024-10-25 09:57] LABS: BASOPHILS PERCENT AUTO 0.1 % (0.0-1.0); EOSINOPHILS PERCENT AUTO 1.7 % (1.0-3.0); HEMATOCRIT 39.9 % (40.0-54.0); HEMOGLOBIN 12.6 g/dL (14.0-18.0); LYMPHOCYTES PERCENT AUTO 19.1 % (20.5-50.1); MEAN CORPUSCULAR HEMOGLOBIN 25.6 pg (27.0-34.0); MEAN CORPUSCULAR HGB CONC 31.6 g/dL (33.0-35.0); MEAN CORPUSCULAR VOLUME 80.9 fL (80-100); MONOCYTES PERCENT AUTO 10.5 % (2-8); NEUTROPHILS PERCENT AUTO 68.6 % (42.2-75.2); PLATELET COUNT,PLT 223 10^3/uL (150-450); RED BLOOD CELL COUNT 4.93 10^6/uL (4.6-6.2); WHITE BLOOD CELL COUNT,WBC 8.8 10^3/uL (5.0-10.0)
[2024-10-25 10:19] LABS: ALBUMIN 3.4 g/dL (3.4-5.0); ANION GAP 10.9 mEq/L (7-13); BILIRUBIN TOTAL 0.5 mg/dL (0.2-1.0); BUN/CREATININE RATIO 12.8 (No establ ref range); CALCIUM 8.8 mg/dL (8.5-10.1); CREATININE 1.09 mg/dL (0.70-1.30); EST CRCL DRUG DOSING (CG) 78.6 mL/min; MAGNESIUM 1.9 mg/dL (1.8-2.4); POTASSIUM,K 3.9 mmol/L (3.5-5.1); PROTEIN TOTAL,TP 6.8 g/dL (6.4-8.2)
[2024-10-25 10:21] LABS: INR 1.1 (0.9-1.2); PROTHROMBIN TIME 11.5 SEC (9.0-12.0); PTT,PARTIAL THROMBOPLSTIN TIME 23.6 SEC (22.0-34.0)
[2024-10-25 10:23] LABS: LACTIC ACID 1.8 mmol/L (0.4-2.0)
[2024-10-25] MEDS: Albuterol/Ipratropium 3.0-0.5 MG/3 ML Neb Soln NEB ONE (10:32)
[2024-10-25] MEDS: Levofloxacin/Dextrose 5%-Water 500 MG in Premix Bag 1 BAG IV ONE (10:42)
[2024-10-25] MEDS: Sodium Chloride 0.9% 1,000 ML IV ONE (10:51)
[2024-10-25] MEDS: Acetaminophen 500 MG Tab PO ONE (11:10)
[2024-10-25] MEDS: Aspirin 81 MG Tab.Chew PO ONE (11:14)
[2024-10-25] MEDS: Iopamidol 755 Mg/ML 100 ML Bottle IVPUSH ONE (12:15)
[2024-10-25] MEDS ORDERED: Magnesium Hydroxide 400 MG/5 ML Susp 30 ML Cup PO PRN (13:48)
[2024-10-25] MEDS ORDERED: Naloxone 2 MG/2 ML Syringe IVPUSH PRN (13:48)
[2024-10-25] MEDS ORDERED: Bisacodyl 5 MG Tab PO PRN (13:48)
[2024-10-25] MEDS ORDERED: Albuterol/Ipratropium 3.0-0.5 MG/3 ML Neb Soln NEB PRN (13:48)
[2024-10-25] MEDS ORDERED: HYDROmorphone 0.5 MG/0.5 ML Syringe IVPUSH PRN (13:48)
[2024-10-25] MEDS ORDERED: Polyethylene Glycol 3350 Powder 17 GM Packet PO PRN (13:48)
[2024-10-25] MEDS ORDERED: Ondansetron 4 MG/2 ML SDV IVPUSH PRN (13:48)
[2024-10-25] MEDS ORDERED: Metoprolol Tartrate 5 MG/5 ML SDV IVPUSH PRN (13:54)
[2024-10-25] MEDS ORDERED: hydrALAZINE 20 MG/ML SDV IVPUSH PRN (13:54)
[2024-10-25] MEDS ORDERED: Benzonatate 100 MG Cap PO PRN (14:00)
[2024-10-25] MEDS: guaiFENesin 600 MG Tab.ER PO ONE (14:30)
[2024-10-25] MEDS: Oseltamivir 75 MG Cap PO ONE (14:30)
[2024-10-25] MEDS: Acetaminophen/Butalbital/Caffeine 325-50-40 MG Tab PO ONE (14:32)
[2024-10-25] MEDS: Cefepime 1 GM Vial IVPUSH SCH (14:35)
[2024-10-25] MEDS: Dexamethasone 4 MG/ML SDV IVPUSH ONE (14:40)
[2024-10-25] MEDS: VANCOmycin 2 GM in Sodium Chloride 0.9% 500 ML IV ONE (14:44)
[2024-10-25] MEDS: guaiFENesin 600 MG Tab.ER PO SCH (21:08)
[2024-10-25] MEDS: Oseltamivir 75 MG Cap PO SCH (21:08)
[2024-10-25] MEDS: Temazepam 15 MG Cap PO PRN (21:19)
[2024-10-26] MEDS: Acetaminophen 325 MG Tab PO PRN (05:44)
[2024-10-26 06:20] LABS: BASOPHILS PERCENT AUTO 0.2 % (0.0-1.0); EOSINOPHILS PERCENT AUTO 0.5 % (1.0-3.0); HEMATOCRIT 38.2 % (40.0-54.0); LYMPHOCYTES PERCENT AUTO 18.7 % (20.5-50.1); MEAN CORPUSCULAR HEMOGLOBIN 25.3 pg (27.0-34.0); MEAN CORPUSCULAR HGB CONC 31.4 g/dL (33.0-35.0); MEAN CORPUSCULAR VOLUME 80.4 fL (80-100); MONOCYTES PERCENT AUTO 11.8 % (2-8); NEUTROPHILS PERCENT AUTO 68.8 % (42.2-75.2); PLATELET COUNT,PLT 194 10^3/uL (150-450); RED BLOOD CELL COUNT 4.75 10^6/uL (4.6-6.2); WHITE BLOOD CELL COUNT,WBC 5.8 10^3/uL (5.0-10.0)
[2024-10-26 06:43] LABS: ALBUMIN 3.1 g/dL (3.4-5.0); ANION GAP 10.1 mEq/L (7-13); BILIRUBIN TOTAL 0.5 mg/dL (0.2-1.0); BUN/CREATININE RATIO 11.8 (No establ ref range); C-REACTIVE PROTEIN 1.04 ng/dL (<=0.50); CALCIUM 8.5 mg/dL (8.5-10.1); CREATININE 1.02 mg/dL (0.70-1.30); EST CRCL DRUG DOSING (CG) 83.99 mL/min; POTASSIUM,K 4.1 mmol/L (3.5-5.1); PROTEIN TOTAL,TP 6.3 g/dL (6.4-8.2)
[2024-10-26 06:45] LABS: A/G RATIO 0.97
[2024-10-26] MEDS: Dexamethasone 4 MG Tab PO SCH (10:03)
[2024-10-26] MEDS ORDERED: Benzonatate 100 MG Cap PO PRN (10:08)
[2024-10-26] MEDS: Gabapentin 100 MG Cap PO ONE (12:23)
[2024-10-26] MEDS: Benzonatate 100 MG Cap PO PRN (12:23)
[2024-10-26] MEDS: guaiFENesin/Dextromethorphan 100-10 MG/5 ML Soln 5 ML Cup PO PRN (14:42)
[2024-10-26] MEDS: Acetaminophen/oxyCODONE 325-5 MG Tab PO PRN (14:49)
[2024-10-26] MEDS: VANCOmycin 1.5 GM/300 ML 1.5 GM in Premix Bag 1 BAG IV SCH (14:57)
[2024-10-26] MEDS: Gabapentin 100 MG Cap PO SCH (20:41)
[2024-10-27 06:20] LABS: HEMATOCRIT 39.4 % (40.0-54.0); HEMOGLOBIN 12.5 g/dL (14.0-18.0); MEAN CORPUSCULAR HEMOGLOBIN 25.4 pg (27.0-34.0); MEAN CORPUSCULAR HGB CONC 31.7 g/dL (33.0-35.0); MEAN CORPUSCULAR VOLUME 79.9 fL (80-100); PLATELET COUNT,PLT 190 10^3/uL (150-450); RED BLOOD CELL COUNT 4.93 10^6/uL (4.6-6.2); WHITE BLOOD CELL COUNT,WBC 6.3 10^3/uL (5.0-10.0)
[2024-10-27 06:49] LABS: ANION GAP 10.2 mEq/L (7-13); BILIRUBIN TOTAL 0.4 mg/dL (0.2-1.0); BUN/CREATININE RATIO 16.7 (No establ ref range); C-REACTIVE PROTEIN 0.68 ng/dL (<=0.50); CALCIUM 8.6 mg/dL (8.5-10.1); CREATININE 0.9 mg/dL (0.70-1.30); EST CRCL DRUG DOSING (CG) 95.19 mL/min; MAGNESIUM 2.1 mg/dL (1.8-2.4); POTASSIUM,K 4.2 mmol/L (3.5-5.1); PROTEIN TOTAL,TP 6.3 g/dL (6.4-8.2)
[2024-10-27 06:50] LABS: A/G RATIO 0.91
[2024-10-27 06:54] LABS: BASOPHILS PERCENT AUTO 0.2 % (0.0-1.0); EOSINOPHILS PERCENT AUTO 0.8 % (1.0-3.0); LYMPHOCYTES PERCENT AUTO 26.4 % (20.5-50.1); MONOCYTES PERCENT AUTO 11.8 % (2-8); NEUTROPHILS PERCENT AUTO 60.8 % (42.2-75.2)
[2024-10-27 07:15] LABS: BAND PERCENT MAN 2 %; EOSINOPHILS PERCENT MAN 1 % (1-3); LYMPHOCYTES PERCENT MAN 26 % (20-50); MONOCYTES PERCENT MAN 12 % (2-8); SEG NEUTROPHILS PERCENT MAN 59 % (42-75)
[2024-10-27] MEDS ORDERED: oxyCODONE 5 MG Tab PO PRN (08:54)
[2024-10-27] MEDS: Acetaminophen/Butalbital/Caffeine 325-50-40 MG Tab PO PRN (20:32)
[2024-10-27] MEDS: Sodium Chloride 0.9% 10 ML Syringe FLUSH PRN (21:33)
[2024-10-28 06:43] LABS: HEMATOCRIT 41.5 % (40.0-54.0); HEMOGLOBIN 13.3 g/dL (14.0-18.0); MEAN CORPUSCULAR HEMOGLOBIN 25.5 pg (27.0-34.0); MEAN CORPUSCULAR VOLUME 79.5 fL (80-100); PLATELET COUNT,PLT 176 10^3/uL (150-450); RED BLOOD CELL COUNT 5.22 10^6/uL (4.6-6.2)
[2024-10-28 06:46] LABS: BASOPHILS PERCENT AUTO 0.1 % (0.0-1.0); EOSINOPHILS PERCENT AUTO 0.6 % (1.0-3.0); LYMPHOCYTES PERCENT AUTO 29.8 % (20.5-50.1); MONOCYTES PERCENT AUTO 8.9 % (2-8); NEUTROPHILS PERCENT AUTO 60.6 % (42.2-75.2)
[2024-10-28 07:09] LABS: BAND PERCENT MAN 1 %; EOSINOPHILS PERCENT MAN 1 % (1-3); LYMPHOCYTES PERCENT MAN 26 % (20-50); MONOCYTES PERCENT MAN 6 % (2-8); SEG NEUTROPHILS PERCENT MAN 66 % (42-75)
[2024-10-28 07:17] LABS: ALANINE AMINOTRANSFERASE,ALT 79 U/L (16-63); ALBUMIN 3.1 g/dL (3.4-5.0); ALKALINE PHOSPHATASE 85 U/L (46-116); ASPARTATE AMNIOTRANSFERASE,AST 45 U/L (15-37); BILIRUBIN TOTAL 0.4 mg/dL (0.2-1.0); BLOOD UREA NITROGEN,BUN 12 mg/dL (7-18); BUN/CREATININE RATIO 13.8 (No establ ref range); CALCIUM 8.8 mg/dL (8.5-10.1); CARBON DIOXIDE,CO2 29 mmol/L (21-32); CHLORIDE,CL 106 mmol/L (98-107); CREATININE 0.87 mg/dL (0.70-1.30); EST CRCL DRUG DOSING (CG) 98.48 mL/min; GLUCOSE RANDOM 136 mg/dL (70-99); MAGNESIUM 2.1 mg/dL (1.8-2.4); PROTEIN TOTAL,TP 6.7 g/dL (6.4-8.2); SODIUM,NA 142 mmol/L (136-145)
[2024-10-28 07:22] LABS: A/G RATIO 0.86; C-REACTIVE PROTEIN < 0.50 ng/dL (<=0.50); ESTIMATED GFR 95 mL/min (>=60)
[2024-10-28 16:51] VITALS: BP 133/79; PULSE 91
== END 2024-10-28 18:10 | disposition home or self-care (01) | DRG 195 ==
LOC: DL.ED 09:08 → DL.MS 13:12 → DL.ED 13:23
PROVIDERS: ADMIT Internal Medicine; ATTEND Internal Medicine
DX: J10.08 Influenza due to other identified influenza virus with other specified pneumonia (principal); J15.9 Unspecified bacterial pneumonia; I10 Essential (primary) hypertension; H91.93 Unspecified hearing loss, bilateral; K21.9 Gastro-esophageal reflux disease without esophagitis; M54.9 Dorsalgia, unspecified; G89.29 Other chronic pain; E66.9 Obesity, unspecified; F15.90 Other stimulant use, unspecified, uncomplicated; E86.0 Dehydration; E78.5 Hyperlipidemia, unspecified; M48.062 Spinal stenosis, lumbar region with neurogenic claudication; F32.9 Major depressive disorder, single episode, unspecified; D64.9 Anemia, unspecified; Z90.49 Acquired absence of other specified parts of digestive tract; Z86.16 Personal history of COVID-19; Z72.0 Tobacco use; Z68.31 Body mass index [BMI] 31.0-31.9, adult; Z98.890 Other specified postprocedural states; Z88.2 Allergy status to sulfonamides
CPT/HCPCS: 36415; 71046; 71275; 76700; 80053; 80202; 83605; 83735; 83880; 84145; 84484; 85025; 85379; 85610; 85651; 85730; 86140; 87040; 87428-QW; 93005; 93010; 94010; 94640; 94667; 96361; 96365; 99284; 99285-25; A9270-GY; J0692; J1100; J1956; J3372; J7030; J7040; J7620-GY; J8540; Q9967